=== PATIENT | female | born 1930 | race Caucasian/White ===

== ENCOUNTER 2016-09-21 10:58 | Outpatient (CLI) | payer MEDICARE, OTHER ==
[2015-09-01 13:07] VITALS: BP 121/53
== END 2016-09-21 11:00 ==
LOC: POD 10:58
PROVIDERS: ATTEND Podiatrist Public Medicine
DX: B35.1 Tinea unguium (principal); G60.8 Other hereditary and idiopathic neuropathies; L60.0 Ingrowing nail; M79.674 Pain in right toe(s); M79.675 Pain in left toe(s); G60.9 Hereditary and idiopathic neuropathy, unspecified
CPT/HCPCS: 11721; G0463

== ENCOUNTER 2016-10-11 14:48 | Emergency (ER) | payer MEDICARE, OTHER ==
--- NOTE | 2016-10-11 15:17 | ED Physician Documentation ---
General Adult - HISTORIAN Historian: patient - HPI Chief Complaint: Multiple Trauma Onset: minutes (30) Timing: still present Context: Patient fell going down a ramp in her garage. Fell on cement, no LOC, Further Comments: yes (Patient is on Ticagrelor and ASA for heart. Patient was walking sown a ramp and lost control of her wheeled walker and feel head first onto the floor, no LOC has a mild headache. no numbenss, weakness, or VA changes. Has swelling and ecchymosis to the right forehead, left breast palms bilat and knees bialterally.) - ROS CONST: no problems. denies: fever, chills - PAST HX Past History: CHF, hypertension, other (hyperlipidemia, s/p [place]) Other History: none Surgeries/Procedures: other (PCI with stent,TR, tonsilectomy, appendectomy) Allergies/Adverse Reactions: Allergies Allergy/AdvReac Type Severity Reaction Status Date / Time Penicillins Allergy Verified 10/11/16 15:40 Sulfa (Sulfonamide Allergy Verified 10/11/16 15:40 Antibiotics) Home Medications: Ambulatory Orders Medication Instructions Recorded Aspirin EC [Ecotrin] 81 mg PO D 04/09/14 Ticagrelor [Brilinta] 90 mg PO TID 10/11/16 - SOCIAL HX Smoking History: non-smoker Alcohol Use: none Drug Use: none - FAMILY HX Family History: No - VITAL SIGNS Vital Signs: Vital Signs Temp Pulse Resp BP Pulse Ox 121/53 09/01/15 10:57 - REVIEWED ASSESSMENTS Nursing Assessment Reviewed: Yes Vitals Reviewed: Yes ED Results Lab/Radiology - Orders Orders: ED Orders Category Date Time Status Saline Lock [Remove IV/Saline Lock] 1T Care 10/11/16 15:[address] BRAIN W/O CONTRAST Stat Exams 10/11/16 Ordered CBC/PLATELET/DIFF Routine Lab 10/11/16 Ordered General Adult Physical Exam - PHYSICAL EXAM GENERAL APPEARANCE: mild distress EENT: eye inspection normal, ENT inspection normal, pharynx normal, no signs of dehydration RESPIRATORY: no resp distress, chest non-tender, breath sounds normal. No: wheezes, rales, rhonchi CVS: reg rate & rhythm, heart sounds normal, equal pulses, no murmur ABDOMEN: soft, no organomegaly, normal bowel sounds, no abdominal bruit, no distension, non-tender BACK: normal inspection, no CVA tenderness SKIN: warm/dry, normal color, other (10cm hematoma to the right forehead area, 8 cm hematoma tot he left outer breast. Swelling on hematoma to the hand and knees bilaterally. ) EXTREMITIES: tenderness (mild right knee. ) NEURO: oriented X3, CN's nml as tested, motor nml, sensation nml, mood/affect nml, cognition normal Discharge Clincal Impression: Traumatic hematoma of multiple sites Additional Instructions: cool compress to the areas of hematoma. Your bruising will probably get worse. If you develop any further problems to return to the ED. Home Medications: Ambulatory Orders Aspirin EC [Ecotrin] 81 mg PO D 04/09/14 Ticagrelor [Brilinta] 90 mg PO TID 10/11/16 Condition: Stable Disposition: 01 HOME, SELF-CARE Decision to Admit: NO Date of Decison to Admit: 10/11/16 Decision Time: 16:15
[2016-10-11 15:19] LABS: BASOPHILS % 0.4 (0.0-1.5); EOSINOPHILS % 4.5 % (0.0-6.8); LYMPHOCYTES # 1.6 # k/uL (0.6-4.0); MEAN CORPUSCULAR HEMOGLOBIN 30.6 pg (28.0-34.0); MONOCYTES # 0.3 # k/uL (0.0-0.9); MONOCYTES % 4.5 % (0.0-11.0); NEUTROPHILS # 4.8 # k/uL (1.4-7.7)
[2016-10-11] MEDS ORDERED: ACETAMINOPHEN 325 MG TABLET PO ONE (15:33)
--- NOTE | 2016-10-11 17:29 | Diagnostic Imaging Report ---
[facility] [address] [facility] [address] [address] Report Submission Date: Oct 11, 2016 3:49:36 PM OUTPATIENT INTERVIEWING CLERK Patient Study Name: STEPHIE YBARRA Date: Oct 11, 2016 3:25:24 PM OUTPATIENT INTERVIEWING CLERK Modality Type: CT\SR Gender: F Description: CT BRAIN W/O CONTRAST : 30 Institution: [facility] Physician: BIRDIE KILLIAN Computed tomography of the head without contrast History: Head injury after fall Findings: The transverse brain sections are obtained without contrast revealing a large right frontal scalp hematoma extending into the preseptal periorbital region. Lens replacements have been performed. There is no orbital hemorrhage or globe rupture. Moderate global brain atrophy is present. Chronic small vessel ischemic gliosis is noted in periventricular white matter. Bronson white differentiation is intact. There is no intracranial hemorrhage or skull fracture. Impression: 1. Large right frontal scalp hematoma. 2. Senescent brain changes. Electronically signed on Oct 11, 2016 3:49:36 PM OUTPATIENT INTERVIEWING CLERK by: Ga HWANG
[2016-10-11 17:39] VITALS: BP 110/57
== END 2016-10-11 16:50 | disposition home or self-care (01) ==
LOC: ED 14:48
DX: T14.90 Injury, unspecified (principal); W19.XXXA Unspecified fall, initial encounter; Y93.9 Activity, unspecified; Y99.9 Unspecified external cause status
CPT/HCPCS: 70450; 85025; 99284; S1016

== ENCOUNTER 2017-01-04 10:09 | Outpatient (CLI) | payer MEDICARE, OTHER | END 2017-01-04 10:10 | LOC: POD 10:09 | PROVIDERS: ATTEND Podiatrist Public Medicine | DX: B35.1 Tinea unguium (principal); G60.8 Other hereditary and idiopathic neuropathies; L60.0 Ingrowing nail; M79.674 Pain in right toe(s); M79.675 Pain in left toe(s) | CPT/HCPCS: 11721; G0463 ==

== ENCOUNTER 2017-03-01 10:22 | Inpatient (IN) | payer MEDICARE, OTHER ==
[2017-03-01] MEDS ORDERED: BUDESONIDE 0.5MG/2ML AMPUL.NEB NEB ONE (10:31)
--- NOTE | 2017-03-01 10:34 | ED Physician Documentation ---
General Adult - HISTORIAN Historian: patient, paramedics - HPI Stated Complaint: SOB Chief Complaint: General Adult Additional Information: Cough and congestion x 3 days. Feels like she has pneumonia. [place] like she had a fever yesterday. Diaphoresis last night. Had pneumonia a year ago and several times in last few years. - ROS CONST: fever, sweating CVS/RESP: shortness of breath, cough - PAST HX Past History: CHF, other (pneumonia) Surgeries/Procedures: other (balloon angioplasties and cardiac stents) Allergies/Adverse Reactions: Allergies Allergy/AdvReac Type Severity Reaction Status Date / Time Penicillins Allergy Verified 03/01/17 10:44 Sulfa (Sulfonamide Allergy Verified 03/01/17 10:44 Antibiotics) Home Medications: Ambulatory Orders Medication Instructions Recorded Aspirin [Kadie] 81 mg PO DAILY 03/01/17 Carvedilol [Coreg] 6.25 mg PO BS 03/01/17 Cholecalciferol [Vitamin D-3] 1,000 unit PO BID 03/01/17 Ticagrelor [Brilinta] 90 mg PO BID 03/01/17 - SOCIAL HX Smoking History: non-smoker - FAMILY HX Family History: No - VITAL SIGNS Vital Signs: Vital Signs Temp Pulse Resp BP Pulse Ox 110/57 10/11/16 16:55 - REVIEWED ASSESSMENTS Nursing Assessment Reviewed: Yes Vitals Reviewed: Yes Progress - Progress Progress: Examination: PA and lateral chest. History: Evaluate lung marion. Findings: PA lateral chest demonstrate a normal cardiac silhouette. No focal infiltrate. Mild tortuosity of thoracic aorta with vascular calcifications involving the aortic arch. Prominent the central pulmonary vasculature with increased interstitial markings. Mild blunting of the posterior sulci. Osseous structures are appropriate for age. Impression: Prominent central pulmonary vasculature and mild posterior blunting : May represent increased volume status/congestive failure. Electronically signed on Mar 01, 2017 12:08:18 PM CDT by: Alf Velasquez [id number], spoke with Dr. Steele. Admit. ED Results Lab/Radiology - Orders Orders: ED Orders Category Date Time Status Continuous EKG monitoring Q1H Care 03/01/17 10:29 Ordered Continuous Pulse Oximetry Q1H Care 03/01/17 10:[address] IV Lock 1T Care 03/01/17 10:31 Ordered CHEST 2 VIEW [CHEST P.A.&LAT 2 VIEWS] [RAD] Stat Exams 03/01/17 Ordered CBC/PLATELET/DIFF Routine Lab 03/01/17 Ordered CMP Routine Lab 03/01/17 Ordered NT-proBNP Stat Lab 03/01/17 Ordered URINALYSIS Routine Lab 03/01/17 Ordered Budesonide [Pulmicort] Med 03/01/17 10:31 Once 0.5 mg NEB BID ONE Oxygen Daily Oxygen 03/01/17 10:30 Ordered EKG WITH COMPARISON Stat Ther 03/01/17 Ordered General Adult Physical Exam - PHYSICAL EXAM GENERAL APPEARANCE: moderate distress (anxious, Duoneb in progress per EMS) EENT: eye inspection normal, ENT inspection normal, pharynx normal, JENNIFER, dry mucous membranes NECK: normal inspection, supple RESPIRATORY: breath sounds normal (but decreased in lower lobes), wheezes (end exp) CVS: reg rate & rhythm, heart sounds normal, equal pulses, no murmur ABDOMEN: soft, normal bowel sounds, no distension, non-tender RECTAL: deferred BACK: normal inspection, no CVA tenderness, other (no vertebra ltenderness) SKIN: warm/dry, normal color EXTREMITIES: non-tender, no evidence of injury, no edema NEURO: CN's nml as tested, motor nml, sensation nml, cognition normal Discharge Clincal Impression: Pneumonia Qualifiers: Pneumonia type: due to unspecified organism Laterality: bilateral Lung location : lower lobe of lung Qualified Code(s): J18.9 - Pneumonia, unspecified organism Referrals: Alexander Steele MD [Primary Care Provider] - 2 Days Home Medications: Ambulatory Orders Aspirin [Kadie] 81 mg PO DAILY 03/01/17 Carvedilol [Coreg] 6.25 mg PO BS 03/01/17 Cholecalciferol [Vitamin D-3] 1,000 unit PO BID 03/01/17 Ticagrelor [Brilinta] 90 mg PO BID 03/01/17 Condition: Fair Disposition: 01 HOME, SELF-CARE Decision to Admit: NO Decision Time: 12:09
[2017-03-01 10:48] LABS: BASOPHILS % 0.3 (0.0-1.5); EOSINOPHILS % 2.1 % (0.0-6.8); MEAN CORPUSCULAR HEMOGLOBIN 30.9 pg (28.0-34.0); MEAN CORPUSCULAR VOLUME 91.9 fl (80.0-100.0); MONOCYTES % 3.4 % (0.0-11.0); NEUTROPHILS # 13.2 # k/uL (1.4-7.7)
[2017-03-01] MEDS ORDERED: SODIUM CHLORIDE 3 ML VIAL.NEB IH ONE (10:51)
[2017-03-01 11:02] LABS: eGFR (African) > 60; eGFR (Non-African) > 60
[2017-03-01] MEDS ORDERED: 0.9 % SODIUM CHLORIDE 1,000 ML IV ONE (11:28)
[2017-03-01] MEDS ORDERED: 0.9 % SODIUM CHLORIDE 1,000 ML IV SCH ×2 (11:30→16:12)
[2017-03-01] MEDS ORDERED: cefTRIAXone SODIUM ADVANTAGE 1 GM in NORMAL SALINE ADD-VANTAGE 50 ML IV ONE (12:07)
[2017-03-01] MEDS ORDERED: AZITHROMYCIN 250 MG TABLET PO ONE (12:07)
[2017-03-01] MEDS ORDERED: cefTRIAXone SODIUM 1 GM VIAL ONE (12:14)
[2017-03-01] MEDS ORDERED: 0.9 % SODIUM CHLORIDE 50 ML IV ONE (12:14)
--- NOTE | 2017-03-01 14:43 | Diagnostic Imaging Report ---
AMINA LEPE [facility] [address] [facility] [address] Report Submission Date: Mar 01, 2017 12:08:18 PM CDT Patient Study Name: STEPHIE YBARRA Date: Mar 01, 2017 11:16:01 AM CDT Modality Type: CR Gender: F Description: CHEST : 30 Institution: [facility] Physician: AMINA LEPE Examination: PA and lateral chest. History: Evaluate lung marion. Findings: PA lateral chest demonstrate a normal cardiac silhouette. No focal infiltrate. Mild tortuosity of thoracic aorta with vascular calcifications involving the aortic arch. Prominent the central pulmonary vasculature with increased interstitial markings. Mild blunting of the posterior sulci. Osseous structures are appropriate for age. Impression: Prominent central pulmonary vasculature and mild posterior blunting : May represent increased volume status/congestive failure. Electronically signed on Mar 01, 2017 12:08:18 PM CDT by: Alf HWANG
[2017-03-01 15:38] VITALS: BMI 27.1
[2017-03-01] MEDS ORDERED: FUROSEMIDE 40 MG/4 ML VIAL IVP SCH (17:00)
[2017-03-01] MEDS: IPRATROPIUM/ALBUTEROL SULFATE 3 ML AMPUL.NEB NEB SCH ×2 (17:22→21:07)
[2017-03-01] MEDS ORDERED: FUROSEMIDE 40 MG/4 ML VIAL IVP ONE (17:26)
[2017-03-01] MEDS ORDERED: SALINE FLUSH 10 ML DISP.SYRIN IVF ONE (17:27)
--- NOTE | 2017-03-01 17:27 | History and Physical Report ---
History of Present Illnes - History of Present Illness Reason for Visit: shortness of breath History of Present Illness: 86-year-old white female you states that over the last three days she is been having some increasing shortness of breath dyspnea with exertion. Patient has had a history of pneumonia in the past. Patient has developed the cough is been productive of some cleared to white phlegm. Patient denies any hemoptysis. Patient has had a low-grade fever. Patient denies any orthotic symptoms. Patient denies any chest pain chest pressure. Patient was subsequently seen in the ED. Patient was felt to have a developing pneumonia and was subsequently admitted to the hospital for further care and evaluation. Patient did have an elevated BNP. Reviewed radiology evaluation of the chest x-ray showed some questionable increasing pulmonary edema. - Past Medical History Cardiac: CAD, CHF, HTN, [place], Hyperlipidemia Pulmonary: Pneumonia - Past Surgical History Past Surgical History: Appendectomy, Total Knee Replacement (2006, 2011), Tonsillectomy, Other (carotid endarterectomy 1995, cervical discectomy 2004, PCI w stenting 2006, PCI w/o stenting 1995, ,) - Past Family History Mother Family History: Father Family History: - Past Social History Smoke: No, Quit (1954) Alcohol: None Drugs: None Lives: With Family () - Health Maintenance Health Maintenance: Influenza Vaccine, Pneumococcal Vaccine Pneumonia Vaccine: Yes Resuscitation Status: Resusciation Status Resuscitation Status Full Code - Unable to Obtain History Unable to Obtain: No Review of Systems - Review of Systems Constitutional: Fever, Chills, Weakness Eyes: negative: pain ENT: Nose Congestion (mild development of Silver). negative: Ear Pain, Ear Discharge, Nose Pain, Nose Discharge Respiratory: Cough, Shortness of Breath, SOB with Excertion, Pleuritic Pain, Sputum, Wheezing. negative: Dry, Hemoptysis (just get to my refrigerator) Cardiovascular: negative: Chest Pain, Palpitations, Paroxysmal Noc. Dyspnea, Edema Gastrointestinal: Constipation. negative: Nausea, Vomiting, Abdominal Pain, Diarrhea, Melena, Hematochezia Genitourinary: Incontinence (stress should more was a not sure where that came from but will shoot acute). negative: Dysuria, Frequency, Hematuria, Retention (having some problems with initiating stream) Musculoskeletal: negative: Neck Pain, Shoulder Pain, Arm Pain, Back Pain Skin: negative: Rash Neurological: Weakness. negative: Numbness, Incoordination, Change in Speech, Confusion, Seizures - Medications/Allergies Allergies/Adverse Reactions: Allergies Allergy/AdvReac Type Severity Reaction Status Date / Time Penicillins Allergy Verified 03/05/17 16:57 Sulfa (Sulfonamide Allergy Verified 03/05/17 16:57 Antibiotics) Home Medications: Home Medications Aspirin [Kadie] 81 mg PO DAILY 03/01/17 Carvedilol [Coreg] 6.25 mg PO BS 03/01/17 Cholecalciferol [Vitamin D-3] 1,000 unit PO BID 03/01/17 Ticagrelor [Brilinta] 90 mg PO BID 03/01/17 Current Inpatient Medications: Current Inpatient Medications Albuterol/Ipratropium (Duoneb) 3 ml NEB Q4 [facility] Last Admin: 03/01/17 17:22 Dose: 3 ml Aspirin (Aspirin) 81 mg PO DAILY [facility] Carvedilol (Coreg) 6.25 mg PO BS [facility] Cholecalciferol (Vitamin D-3) 1,000 unit PO BID [facility] Duloxetine HCl (Cymbalta) 60 mg PO HS [facility] Enoxaparin Sodium (Lovenox) 30 mg SQ QD [facility] Stop: 03/14/17 17:01 Furosemide (Lasix) 40 mg PO DAILY [facility] Furosemide (Lasix) 40 mg IVP QD [facility] Furosemide (Lasix) 40 mg IVP NOW ONE Stop: 03/01/17 17:27 Azithromycin 500 mg/ Sodium (Chloride) 250 mls @ 125 mls/hr IV Q24H [facility] Stop: 03/12/17 12:59 Ceftriaxone Sodium 1 gm/ (Sodium Chloride) 50 mls @ 100 mls/hr IV QD [facility] Lisinopril (Prinivil) 5 mg PO DAILY [facility] Miscellaneous (Ticagrelor [Brilinta]) 90 mg PO BID [facility] Miscellaneous (Chem Sticks) 1 each CHEMQID [facility] Last Admin: 03/01/17 16:06 Dose: 1 each Miscellaneous (Patient Own Med) 1 each PO BID [facility] Pravastatin Sodium (Pravachol) 40 mg PO HS [facility] Exam - Exam Vital Signs: Vital Signs (72 hours) 03/01/17 03/01/17 03/01/17 12:57 13:00 14:00 Temperature 98.5 F Pulse Rate 78 77 Pulse Rate [ 84 Pulse ox] Respiratory 22 Rate Blood Pressure 137/68 [Left Arm] O2 Sat by Pulse 94 94 94 Oximetry 03/01/17 03/01/17 03/01/17 15:00 16:00 16:39 Temperature 98.6 F Pulse Rate 80 91 H Pulse Rate [ 88 Pulse ox] Respiratory 24 Rate Blood Pressure 144/78 [Left Arm] O2 Sat by Pulse 95 95 95 Oximetry 03/01/17 17:00 Temperature Pulse Rate 91 H Pulse Rate [ Pulse ox] Respiratory Rate Blood Pressure [Left Arm] O2 Sat by Pulse 94 Oximetry General: Alert, Oriented to Person, Oriented to Place, Oriented to Time, Cooperative HEENT: Atraumatic Neck: No: Stridor, Rigidity, Lymphadenopathy Carotids: WNL Thyroid: WNL Lungs: Normal air movement, Speaks full Sentences, Respiratory Distress (mild), Rales (bilateral base), Rhonchi (bilateral bas). No: Prolonged Expiration Cardiovascular: Regular rate, Normal S1, Normal S2, No murmurs. No: Gallops, Rubs Abdomen: Normal bowel sounds, Soft, No tenderness, No hepatospenomegaly, No masses. No: Distended Integumentary: Normal, Umbarger, Warm Extremities: No clubbing, No cyanosis Neurological: Normal gait, Normal speech, Strength Equal Bilat, Normal tone, Sensation intact, Cranial nerves 3-12 NL Psych/Mental Status: Mental status NL, Mood NL, Appropriate Affect, Intact Judgment Assessment/Plan - Assessment/Plan (1) Pneumonia Status: Acute Qualifiers: Pneumonia type: due to unspecified organism Laterality: bilateral Lung location: unspecified part of lung Qualified Code(s): J18.9 - Pneumonia, unspecified organism Plan: patient will be started on Azithromycin and levequin. Will start HFN treatments. Blood cultures drawn, supplemental oxygen, (2) CAD (coronary artery disease) Status: Chronic Qualifiers: Coronary Disease-Associated Artery/Lesion type: [place] artery [place] vs. transplanted heart: [place] heart Associated angina: without angina Qualified Code(s): I25.10 - Atherosclerotic heart disease of [place] coronary artery without angina pectoris Assessment: continue home meds (3) CHF (congestive heart failure) Status: Chronic Qualifiers: Congestive heart failure chronicity: chronic (4) Essential hypertension Status: Chronic Assessment: continue home meds VTE Assessment - RISK FACTOR SCORE VTE RISK FACTOR SCORES: AGE OVER 60 YEARS, ACUTE INFECTION OTHER THEN SEPSIS - RISK VTE MODERATE RISK: SCORE OF 2 (RISK PROXIMAL DVT 2-4%) PROPHYAXIS NEEDED
[2017-03-01] MEDS: ENOXAPARIN SODIUM 30 MG/0.3 ML DISP.SYRIN SQ SCH (17:43)
[2017-03-01] MEDS: CARVEDILOL 6.25 MG TABLET PO SCH (17:44)
[2017-03-01] MEDS ORDERED: POLYETHYLENE GLYCOL 3350 17 GM POWD.PACK PO ONE (17:48)
[2017-03-01] MEDS ORDERED: ACETAMINOPHEN 325 MG TABLET ONE (18:13)
[2017-03-01] MEDS: ACETAMINOPHEN 500 MG TABLET PO PRN (18:25)
[2017-03-01 19:13] LABS: APPEARANCE,URINE Clear (CLEAR); COLOR,URINE Yellow (YELLOW); OCCULT BLOOD,URINE 2+ (NEGATIVE); PH URINE 5.5 (5.0 - 8.0); UROBILINOGEN URINE 0.2 Eu (0.2-1.0)
[2017-03-01] MEDS ORDERED: ASPIRIN 81 MG CHEW TAB PO SCH (21:00)
[2017-03-01] MEDS ORDERED: TICAGRELOR 90 MG PO SCH (21:00)
[2017-03-01] MEDS ORDERED: [UNRECOGNIZED DRUG - MIXTURE] PO SCH (21:00)
[2017-03-01] MEDS: PRAVASTATIN SODIUM 20 MG TABLET PO SCH (21:08)
[2017-03-01] MEDS: DULoxetine HCL 30 MG CAPSULE.DR PO SCH (21:08)
[2017-03-01] MEDS: CHOLECALCIFEROL 1,000 UNIT TABLET PO SCH (21:08)
[2017-03-01] MEDS: TICAGRELOR 90 MG PO SCH (21:14)
[2017-03-02] MEDS: IPRATROPIUM/ALBUTEROL SULFATE 3 ML AMPUL.NEB NEB SCH ×6 (01:30→21:13)
[2017-03-02 07:01] LABS: BASOPHILS % 0.4 (0.0-1.5); EOSINOPHILS % 1.9 % (0.0-6.8); MEAN CORPUSCULAR HEMOGLOBIN 31.1 pg (28.0-34.0); MEAN CORPUSCULAR VOLUME 93.6 fl (80.0-100.0); MONOCYTES % 4.3 % (0.0-11.0); NEUTROPHILS # 11.5 # k/uL (1.4-7.7)
[2017-03-02 07:15] LABS: eGFR (African) > 60; eGFR (Non-African) 41
[2017-03-02] MEDS: CHOLECALCIFEROL 1,000 UNIT TABLET PO SCH ×2 (08:39→20:53)
[2017-03-02] MEDS: TICAGRELOR 90 MG PO SCH ×2 (08:39→20:51)
[2017-03-02] MEDS: CARVEDILOL 6.25 MG TABLET PO SCH ×2 (08:39→17:27)
[2017-03-02] MEDS: LISINOPRIL 5 MG TABLET PO SCH (08:40)
[2017-03-02] MEDS ORDERED: Non-Formulary 1 EACH (Duloxetine Hcl [Duloxetine Hcl] 60 MG) PO SCH (09:00)
[2017-03-02] MEDS ORDERED: ASPIRIN 81 MG CHEW TAB PO SCH (09:00)
[2017-03-02] MEDS ORDERED: PRAVASTATIN SODIUM 40 MG PO SCH (09:00)
[2017-03-02] MEDS: POLYETHYLENE GLYCOL 3350 17 GM POWD.PACK PO SCH (10:34)
[2017-03-02] MEDS ORDERED: SALINE FLUSH 10 ML DISP.SYRIN IVF ONE ×2 (13:16→17:41)
[2017-03-02] MEDS: AZITHROMYCIN 500 MG in 0.9 % SODIUM CHLORIDE 250 ML IV SCH (13:26)
--- NOTE | 2017-03-02 15:48 | Diagnostic Imaging Report ---
[place]/MED SURG [facility] [address] [address] [facility] [address] [address] Report Submission Date: Mar 02, 2017 3:47:35 PM CDT Patient Study Name: STEPHIE YBARRA Date: Mar 02, 2017 3:10:49 PM CDT Modality Type: US Gender: F Description: US RETROPERITONEAL LIMIT : 30 Institution: [facility] Physician: ROBINSON MARIA/MED SURG Examination: Ultrasound bladder History: Retention Comparison exams: None provided Findings: Pre void volume 367.21 ml. Post void volume 291.12 Bladder wall without evidence for mass or suspicious lesion. Impression: Significant post void residual. Correlate with any underlying medical condition/history to determine etiology Electronically signed on Mar 02, 2017 3:47:35 PM CDT by: Alf HWANG
[2017-03-02] MEDS: cefTRIAXone SODIUM 1 GM in 0.9 % SODIUM CHLORIDE 50 ML IV SCH (17:25)
[2017-03-02] MEDS: ENOXAPARIN SODIUM 30 MG/0.3 ML DISP.SYRIN SQ SCH (17:27)
[2017-03-02] MEDS: DULoxetine HCL 30 MG CAPSULE.DR PO SCH (20:50)
[2017-03-02] MEDS: ASPIRIN EC 81 MG TABLET.DR PO SCH (20:51)
[2017-03-02] MEDS: PRAVASTATIN SODIUM 20 MG TABLET PO SCH (20:52)
[2017-03-02] MEDS: ACETAMINOPHEN 500 MG TABLET PO PRN (23:11)
[2017-03-03] MEDS: IPRATROPIUM/ALBUTEROL SULFATE 3 ML AMPUL.NEB NEB SCH ×6 (01:00→20:37)
[2017-03-03] MEDS: CARVEDILOL 6.25 MG TABLET PO SCH ×2 (08:42→17:28)
[2017-03-03] MEDS: FUROSEMIDE 40 MG TABLET PO SCH (08:43)
[2017-03-03] MEDS: TICAGRELOR 90 MG PO SCH ×2 (08:43→20:09)
[2017-03-03] MEDS: CHOLECALCIFEROL 1,000 UNIT TABLET PO SCH ×2 (08:44→20:10)
[2017-03-03] MEDS: LISINOPRIL 5 MG TABLET PO SCH (08:44)
[2017-03-03 10:26] LABS: BASOPHILS % 0.5 (0.0-1.5); EOSINOPHILS % 3.5 % (0.0-6.8); MEAN CORPUSCULAR HEMOGLOBIN 31.3 pg (28.0-34.0); MEAN CORPUSCULAR VOLUME 91.9 fl (80.0-100.0); MONOCYTES % 4.4 % (0.0-11.0); NEUTROPHILS # 8.8 # k/uL (1.4-7.7)
[2017-03-03 10:37] LABS: eGFR (African) > 60; eGFR (Non-African) > 60
[2017-03-03] MEDS: POLYETHYLENE GLYCOL 3350 17 GM POWD.PACK PO SCH (11:37)
--- NOTE | 2017-03-03 11:51 | Inpatient Progress Note ---
Subjective - Required Recertification Statement I anticipate X number of days because-include discharge plan: 1 - Review of Systems Events since last encounter: patient states that she seem to be doing OK with breathing. Is off oxygen at this time. Has Been having some difficulties with urinating over the last 24 hours. Patient has post void US done which showed 290cc. General: Denies: Chills Cardiovascular: Denies: Chest Pain Neurological: Denies: Weakness, Numbness Objective - Exam Vitals and I&O: Vital Signs Temp 98.8 F 03/03/17 08:37 Pulse 81 03/03/17 10:00 Resp 18 03/03/17 08:37 BP 128/73 03/03/17 08:37 Pulse Ox 90 L 03/03/17 08:37 Intake & Output 03/02/17 03/02/17 03/03/17 11:59 23:59 11:59 Intake Total 420 1130 840 Output Total 963 213 2646 Balance -380 1010 -760 Weight 88.45 kg Intake: IV 0 300 0 Right Forearm 0 300 0 Oral 420 830 840 Output: Urine 380 455 9210 Other: Voiding Method Toilet Toilet Toilet # Voids 4 # Bowel Movements 0 General: Alert, Oriented to Person, Oriented to Place, Oriented to Time, Cooperative Neck: Supple Lungs: Clear to auscultation, Normal air movement, Speaks full Sentences. No: Wheezes, Rales Cardiovascular: Regular rate, Normal S1, Normal S2, No murmurs Abdomen: Normal bowel sounds, Soft, No tenderness Skin: Normal, [place], Warm, Dry Psych/Mental Status: Mental status NL - Results Results: Laboratory Results WBC 11.00 K/ul (4.00-12.00) 03/03/17 10:10 RBC 3.58 M/ul (3.90-5.20) L 03/03/17 10:10 Hgb 11.2 g/dL (12.0-16.0) L 03/03/17 10:10 Hct 32.9 % (34.5-46.5) L 03/03/17 10:10 MCV 91.9 fl (80.0-100.0) 03/03/17 10:10 MCH 31.3 pg (28.0-34.0) 03/03/17 10:10 MCHC 34.1 g/dL (30.0-36.0) 03/03/17 10:10 RDW 13.8 % (11.3-14.3) 03/03/17 10:10 Plt Count 186 K/mm3 (130-400) 03/03/17 10:10 Neut % (Auto) 79.9 % (39.0-79.0) H 03/03/17 10:10 Lymph % (Auto) 10.2 % (16.0-50.0) L 03/03/17 10:10 Peach % (Auto) 4.4 % (0.0-11.0) 03/03/17 10:10 Eos % (Auto) 3.5 % (0.0-6.8) 03/03/17 10:10 Baso % (Auto) 0.5 (0.0-1.5) 03/03/17 10:10 Neut # (Auto) 8.8 # k/uL (1.4-7.7) H 03/03/17 10:10 Lymph # (Auto) 1.1 # k/uL (0.6-4.0) 03/03/17 10:10 Peach # (Auto) 0.5 # k/uL (0.0-0.9) 03/03/17 10:10 Eos # (Auto) 0.4 # k/uL (0.0-0.6) 03/03/17 10:10 Baso # (Auto) 0.1 # k/uL (0.0-0.5) 03/03/17 10:10 Reactive Lymphs % 1.4 % (0.0-5.0) 03/03/17 10:10 Reactive Lymphs # 0.2 # k/uL (0.0-0.8) 03/03/17 10:10 Sodium 130 mmol/L (136-145) L 03/03/17 10:10 Potassium 3.7 mmol/L (3.5-5.0) 03/03/17 10:10 Chloride 95 mmol/L (98-110) L 03/03/17 10:10 Carbon Dioxide 26 mmol/L (20-32) 03/03/17 10:10 BUN 21 mg/dL (10-26) 03/03/17 10:10 Creatinine 1.1 mg/dL (0.4-1.5) 03/03/17 10:10 Estimated Creat Clear 60 03/03/17 10:10 Est GFR ( Amer) > 60 (60-) 03/03/17 10:10 Est GFR (Non-Af Amer) > 60 (60-) 03/03/17 10:10 Glucose 222 mg/dL (70-99) H 03/03/17 10:10 Estimat Average Glucose 166 mg/dL 03/02/17 06:45 Hemoglobin A1c 7.4 % (4.0-5.6) H 03/02/17 06:45 Calcium 9.3 mg/dL (8.5-10.5) 03/03/17 10:10 Total Bilirubin 0.7 mg/dL (0.2-1.2) 03/02/17 06:45 AST 17 U/L (0-41) 03/02/17 06:45 ALT 13 U/L (0-45) 03/02/17 06:45 Alkaline Phosphatase 131 U/L (46-116) H 03/02/17 06:45 NT-Pro-B Natriuret Pep 1031.5 pg/mL (15.0-450.0) H 03/03/17 10:10 Total Protein 7.0 g/dL (6.0-8.5) 03/02/17 06:45 Albumin 3.8 g/dL (3.0-5.5) 03/02/17 06:45 Urine Color Yellow (YELLOW) 03/01/17 19:00 Urine Appearance Clear (CLEAR) 03/01/17 19:00 Urine pH 5.5 (5.0 - 8.0) 03/01/17 19:00 Ur Specific [place] 1.010 (1.010-1.030) 03/01/17 19:00 Urine Protein Trace mg/dL (NEGATIVE) 03/01/17 19:00 Urine Ketones Negative mg/dL (NEGATIVE) 03/01/17 19:00 Urine Occult Blood 2+ (NEGATIVE) H 03/01/17 19:00 Urine Nitrite Positive (NEGATIVE) 03/01/17 19:00 Urine Bilirubin Negative (NEGATIVE) 03/01/17 19:00 Urine Urobilinogen 0.2 Eu (0.2-1.0) 03/01/17 19:00 Ur Leukocyte Esterase 1+ (NEGATIVE) H 03/01/17 19:00 Urine Glucose Negative mg/dL (NEGATIVE) 03/01/17 19:00 Group A Strep Screen Negative (NEGATIVE) 03/01/17 11:20 Assessment/Plan - Assessment/Plan (1) Pneumonia Status: Acute Current Visit: Yes Qualifiers: Pneumonia type: due to unspecified organism Laterality: bilateral Lung location: lower lobe of lung Qualified Code(s): J18.9 - Pneumonia, unspecified organism Assessment: Improved, WBC is now normal, will get repeat CXR. (2) CAD (coronary artery disease) Status: Chronic Current Visit: Yes Qualifiers: Coronary Disease-Associated Artery/Lesion type: [place] artery [place] vs. transplanted heart: [place] heart Associated angina: without angina Qualified Code(s): I25.10 - Atherosclerotic heart disease of [place] coronary artery without angina pectoris Assessment: stable (3) CHF (congestive heart failure) Status: Chronic Current Visit: Yes Qualifiers: Congestive heart failure chronicity: chronic (4) Essential hypertension Status: Chronic Current Visit: Yes Assessment: stable (5) Voiding difficulty Status: Acute Current Visit: Yes Assessment: Will consider cath. Patient encouraged to continue to drink a lot.
--- NOTE | 2017-03-03 11:55 | Inpatient Progress Note ---
Subjective - Required Recertification Statement I anticipate X number of days because-include discharge plan: 2 day - Review of Systems Events since last encounter: Patient seems to be doing some better today. States that she is breathing a lot better then yesterday. Still has a cough, green at times. No fever or chill noted. Still feels weak. Pulmonary: Dyspnea, Cough. Denies: Pleuritic Chest Pain Cardiovascular: Denies: Chest Pain Gastrointestinal: Denies: Nausea, Vomiting Objective - Exam Vitals and I&O: Vital Signs Temp 98.8 F 03/03/17 08:37 Pulse 81 03/03/17 10:00 Resp 18 03/03/17 08:37 BP 128/73 03/03/17 08:37 Pulse Ox 90 L 03/03/17 08:37 Intake & Output 03/02/17 03/02/17 03/03/17 11:59 23:59 11:59 Intake Total 420 1130 840 Output Total 755 657 8341 Balance -380 1010 -760 Weight 88.45 kg Intake: IV 0 300 0 Right Forearm 0 300 0 Oral 420 830 840 Output: Urine 742 141 2470 Other: Voiding Method Toilet Toilet Toilet # Voids 4 # Bowel Movements 0 General: Alert, Oriented to Person, Oriented to Place, Oriented to Time, Cooperative Lungs: Normal air movement, Speaks full Sentences, Rhonchi (few right posterior) Cardiovascular: Regular rate, Normal S1, Normal S2, No murmurs Extremities: No clubbing, No cyanosis, No edema Skin: Normal, [place], Warm, Dry Neurological: Normal speech - Results Results: Laboratory Results WBC 11.00 K/ul (4.00-12.00) 03/03/17 10:10 RBC 3.58 M/ul (3.90-5.20) L 03/03/17 10:10 Hgb 11.2 g/dL (12.0-16.0) L 03/03/17 10:10 Hct 32.9 % (34.5-46.5) L 03/03/17 10:10 MCV 91.9 fl (80.0-100.0) 03/03/17 10:10 MCH 31.3 pg (28.0-34.0) 03/03/17 10:10 MCHC 34.1 g/dL (30.0-36.0) 03/03/17 10:10 RDW 13.8 % (11.3-14.3) 03/03/17 10:10 Plt Count 186 K/mm3 (130-400) 03/03/17 10:10 Neut % (Auto) 79.9 % (39.0-79.0) H 03/03/17 10:10 Lymph % (Auto) 10.2 % (16.0-50.0) L 03/03/17 10:10 [place] % (Auto) 4.4 % (0.0-11.0) 03/03/17 10:10 Eos % (Auto) 3.5 % (0.0-6.8) 03/03/17 10:10 Baso % (Auto) 0.5 (0.0-1.5) 03/03/17 10:10 Neut # (Auto) 8.8 # k/uL (1.4-7.7) H 03/03/17 10:10 Lymph # (Auto) 1.1 # k/uL (0.6-4.0) 03/03/17 10:10 [place] # (Auto) 0.5 # k/uL (0.0-0.9) 03/03/17 10:10 Eos # (Auto) 0.4 # k/uL (0.0-0.6) 03/03/17 10:10 Baso # (Auto) 0.1 # k/uL (0.0-0.5) 03/03/17 10:10 Reactive Lymphs % 1.4 % (0.0-5.0) 03/03/17 10:10 Reactive Lymphs # 0.2 # k/uL (0.0-0.8) 03/03/17 10:10 Sodium 130 mmol/L (136-145) L 03/03/17 10:10 Potassium 3.7 mmol/L (3.5-5.0) 03/03/17 10:10 Chloride 95 mmol/L (98-110) L 03/03/17 10:10 Carbon Dioxide 26 mmol/L (20-32) 03/03/17 10:10 BUN 21 mg/dL (10-26) 03/03/17 10:10 Creatinine 1.1 mg/dL (0.4-1.5) 03/03/17 10:10 Estimated Creat Clear 60 03/03/17 10:10 Est GFR ( Amer) > 60 (60-) 03/03/17 10:10 Est GFR (Non-Af Amer) > 60 (60-) 03/03/17 10:10 Glucose 222 mg/dL (70-99) H 03/03/17 10:10 Estimat Average Glucose 166 mg/dL 03/02/17 06:45 Hemoglobin A1c 7.4 % (4.0-5.6) H 03/02/17 06:45 Calcium 9.3 mg/dL (8.5-10.5) 03/03/17 10:10 Total Bilirubin 0.7 mg/dL (0.2-1.2) 03/02/17 06:45 AST 17 U/L (0-41) 03/02/17 06:45 ALT 13 U/L (0-45) 03/02/17 06:45 Alkaline Phosphatase 131 U/L (46-116) H 03/02/17 06:45 NT-Pro-B Natriuret Pep 1031.5 pg/mL (15.0-450.0) H 03/03/17 10:10 Total Protein 7.0 g/dL (6.0-8.5) 03/02/17 06:45 Albumin 3.8 g/dL (3.0-5.5) 03/02/17 06:45 Urine Color Yellow (YELLOW) 03/01/17 19:00 Urine Appearance Clear (CLEAR) 03/01/17 19:00 Urine pH 5.5 (5.0 - 8.0) 03/01/17 19:00 Ur Specific [place] 1.010 (1.010-1.030) 03/01/17 19:00 Urine Protein Trace mg/dL (NEGATIVE) 03/01/17 19:00 Urine Ketones Negative mg/dL (NEGATIVE) 03/01/17 19:00 Urine Occult Blood 2+ (NEGATIVE) H 03/01/17 19:00 Urine Nitrite Positive (NEGATIVE) 03/01/17 19:00 Urine Bilirubin Negative (NEGATIVE) 03/01/17 19:00 Urine Urobilinogen 0.2 Eu (0.2-1.0) 03/01/17 19:00 Ur Leukocyte Esterase 1+ (NEGATIVE) H 03/01/17 19:00 Urine Glucose Negative mg/dL (NEGATIVE) 03/01/17 19:00 Group A Strep Screen Negative (NEGATIVE) 03/01/17 11:20 Assessment/Plan - Assessment/Plan (1) Pneumonia Status: Acute Qualifiers: Pneumonia type: due to unspecified organism Laterality: bilateral Lung location: unspecified part of lung Qualified Code(s): J18.9 - Pneumonia, unspecified organism (2) CAD (coronary artery disease) Status: Chronic Qualifiers: Coronary Disease-Associated Artery/Lesion type: [place] artery [place] vs. transplanted heart: [place] heart Associated angina: without angina Qualified Code(s): I25.10 - Atherosclerotic heart disease of [place] coronary artery without angina pectoris Assessment: stable on home meds (3) CHF (congestive heart failure) Status: Chronic Qualifiers: Congestive heart failure chronicity: chronic Comment: stable on home meds (4) Essential hypertension Status: Chronic (5) Voiding difficulty Status: Acute
[2017-03-03] MEDS: AZITHROMYCIN 500 MG in 0.9 % SODIUM CHLORIDE 250 ML IV SCH (13:58)
[2017-03-03] MEDS ORDERED: SALINE FLUSH 10 ML DISP.SYRIN IVF ONE (14:06)
--- NOTE | 2017-03-03 15:14 | Diagnostic Imaging Report ---
[facility] [address] [facility].[address] [address] Report Submission Date: Mar 03, 2017 12:14:50 PM CDT Patient Study Name: STEPHIE YBARRA Date: Mar 03, 2017 11:03:02 AM CDT Modality Type: CR Gender: F Description: CHEST : 30 Institution: [facility] Physician: [facility] Examination: PA and lateral chest. History: Evaluate lung marion. Comparison exam: 01 March 2017 Findings: PA lateral chest demonstrate a normal cardiac silhouette. Mild tortuosity of the thoracic aorta with vascular calcifications involving the aortic arch. Parenchymal interstitial pattern has remained stable. No new consolidative process. Stable presumed granuloma right midlung region. Lateral view again demonstrates some blunting of the posterior sulci. Osseous structures are appropriate for age. Impression: Stable interstitial changes. Findings may represent continued mild congestive failure pattern versus patient's baseline pulmonary status. Correlate with patient's symptoms. Electronically signed on Mar 03, 2017 12:14:50 PM CDT by: Alf HWANG
[2017-03-03] MEDS: cefTRIAXone SODIUM 1 GM in 0.9 % SODIUM CHLORIDE 50 ML IV SCH (16:19)
[2017-03-03] MEDS: ENOXAPARIN SODIUM 30 MG/0.3 ML DISP.SYRIN SQ SCH (17:28)
[2017-03-03] MEDS: DULoxetine HCL 30 MG CAPSULE.DR PO SCH (20:07)
[2017-03-03] MEDS: PRAVASTATIN SODIUM 20 MG TABLET PO SCH (20:09)
[2017-03-03] MEDS: ASPIRIN EC 81 MG TABLET.DR PO SCH (20:10)
[2017-03-03] MEDS: ACETAMINOPHEN 500 MG TABLET PO PRN ×2 (20:12→23:27)
[2017-03-04] MEDS: IPRATROPIUM/ALBUTEROL SULFATE 3 ML AMPUL.NEB NEB SCH ×3 (02:29→08:20)
[2017-03-04] MEDS: CARVEDILOL 6.25 MG TABLET PO SCH (08:19)
[2017-03-04] MEDS: FUROSEMIDE 40 MG TABLET PO SCH (08:20)
[2017-03-04] MEDS: LISINOPRIL 5 MG TABLET PO SCH (08:20)
[2017-03-04] MEDS: CHOLECALCIFEROL 1,000 UNIT TABLET PO SCH (08:20)
[2017-03-04] MEDS: TICAGRELOR 90 MG PO SCH (08:20)
[2017-03-04 08:37] VITALS: BP 126/59
--- NOTE | 2017-04-04 15:51 | Discharge Summary ---
Discharge Summary - Discharge Sumary History of Present Illness: 86-year-old white female you states that over the last three days she is been having some increasing shortness of breath dyspnea with exertion. Patient has had a history of pneumonia in the past. Patient has developed the cough is been productive of some cleared to white phlegm. Patient denies any hemoptysis. Patient has had a low-grade fever. Patient denies any orthotic symptoms. Patient denies any chest pain chest pressure. Patient was subsequently seen in the ED. Patient was felt to have a developing pneumonia and was subsequently admitted to the hospital for further care and evaluation. Patient did have an elevated BNP. Reviewed radiology evaluation of the chest x-ray showed some questionable increasing pulmonary edema. Condition at Discharge: Stable Home Medications: Ambulatory Orders Medication Instructions Recorded Aspirin [Kadie] 81 mg PO DAILY 03/01/17 Carvedilol [Coreg] 6.25 mg PO BS 03/01/17 Cholecalciferol [Vitamin D-3] 1,000 unit PO BID 03/01/17 Ticagrelor [Brilinta] 90 mg PO BID 03/01/17 Allopurinol [Zyloprim] 100 mg PO DAILY #30 tab 03/22/17 HYDROcodone /APAP 5/325 [[place] 1 each PO Q4 PRN #20 tab 03/22/17 5/325] Consultations this Visit: None Procedures this Visit: None Allergies/Adverse Reactions: Allergies Allergy/AdvReac Type Severity Reaction Status Date / Time Penicillins Allergy Verified 03/05/17 16:57 Sulfa (Sulfonamide Allergy Verified 03/05/17 16:57 Antibiotics) Discharge Summary: Patient was started on ceftriaxone 1 g IV today and azithromycin 500 mg BID. Patient was started on high flow nebulization treatments. Patient breathing status did improve slowly over the course hospitalization. Patient did have some difficulties with voiding. An ultrasound for postvoid residual was done.Patient was able to avoid approximately 70 mL of urine approximately 300 mL of residual left. Patient congestive heart failure remains stable during the hospitalization. Patient does not have any chest pain or chest pressure during her hospitalization. Patient blood sugars however remained elevated in the upper 100 to mid 200 hundred range. Patient had not been previously diagnosed with diabetes mellitus.Patient continued to have some gait disturbing during her hospitalization. Patient was advised to stay for skilled services however refused and wanted to go home. Patient was subsequently discharged in stable condition. Patient did not want home health because she would need to be homebound. - Final Diagnosis (1) Pneumonia Problems: Improved. (2) CAD (coronary artery disease) Problems: stable (3) CHF (congestive heart failure) Problems: stable (4) Essential hypertension Problems: stable (5) Voiding difficulty Problems: will get urology appointment for further evaluation.
== END 2017-03-04 12:19 | disposition home or self-care (01) | DRG 194 ==
LOC: ED 10:22 → SOUTH 12:28
PROVIDERS: ADMIT Family Medicine; ATTEND Family Medicine
DX: J18.9 Pneumonia, unspecified organism (principal); I50.20 Unspecified systolic (congestive) heart failure; I25.10 Atherosclerotic heart disease of native coronary artery without angina pectoris; I11.0 Hypertensive heart disease with heart failure; R39.198 Other difficulties with micturition
CPT/HCPCS: 36415; 71020; 76857; 80048; 80053; 81002; 83036; 83880; 85025; 87040; 87070; 87086; 87880; 93005; J0456; J0696; J1650; J1940; J7030; J7050; J7626; 99223; 99233; 99238; 99284; S1016

== ENCOUNTER 2017-03-05 16:36 | Inpatient (IN) | payer MEDICARE, OTHER ==
--- NOTE | 2017-03-05 16:57 | ED Physician Documentation ---
General Adult - HISTORIAN Historian: patient - HPI Stated Complaint: sob Chief Complaint: General Adult Onset: days ago Timing: still present Severity: moderate Further Comments: yes (Pt is an 86 yo female discharged from [facility] yesterday after admission for pneumonia, CHF and urinary retention. Pt was sent home on oral Levaquin and Azithromycin and Lasix as well as other meds and returns today with some wheezing and chief complaint of painful feet, which have some swelling. Pt has not had chest pain, fever, n/v.) - ROS CONST: no problems EYES/ENT: none CVS/RESP: shortness of breath, other (swollen feet) GI/: none MS/SKIN/LYMPH: none - PAST HX Past History: other (CAD, CHF, HTN, [place], HLD, Pneumonia) Surgeries/Procedures: other (appendectomy, Total Knee replacements, Tonsillectomy, CEA, cervical discectomy, PCI w stenting 2006, PCI w/o stenting 1995.) Allergies/Adverse Reactions: Allergies Allergy/AdvReac Type Severity Reaction Status Date / Time Penicillins Allergy Verified 03/05/17 16:57 Sulfa (Sulfonamide Allergy Verified 03/05/17 16:57 Antibiotics) Home Medications: Ambulatory Orders Medication Instructions Recorded Aspirin [Kadie] 81 mg PO DAILY 03/01/17 Carvedilol [Coreg] 6.25 mg PO BS 03/01/17 Cholecalciferol [Vitamin D-3] 1,000 unit PO BID 03/01/17 Ticagrelor [Brilinta] 90 mg PO BID 03/01/17 Azithromycin [Zithromax] 250 mg PO DAILY #2 tablet 03/04/17 Ipratropium/Albuterol Sulfate 3 ml NEB Q4 #60 vial 03/04/17 [Duoneb] Levofloxacin [Levaquin] 500 mg PO D #7 tablet 03/04/17 - SOCIAL HX Smoking History: quit greater than 1 year - FAMILY HX Family History: No - VITAL SIGNS Vital Signs: Vital Signs Temp Pulse Resp BP Pulse Ox 126/59 03/04/17 10:02 - REVIEWED ASSESSMENTS Nursing Assessment Reviewed: Yes Vitals Reviewed: Yes Progress - Progress Progress: Lasix 40 mg IV Admit to Skilled, Dr. Steele. - EKG/XRAY/CT EKG: NSR (HR=81; 1st degree AV block; LAD; unchanged since Jun 2015.) XRAY: chest (Stable chronic interstitial changes. No focal infiltrate/effusion.) General Adult Physical Exam - PHYSICAL EXAM GENERAL APPEARANCE: mild distress EENT: pharynx normal NECK: normal inspection, supple RESPIRATORY: no resp distress, chest non-tender, wheezes, rales CVS: reg rate & rhythm, heart sounds normal ABDOMEN: soft, no organomegaly, normal bowel sounds BACK: normal inspection, no CVA tenderness SKIN: warm/dry, normal color EXTREMITIES: edema (1+ pedal), tenderness NEURO: motor nml, sensation nml Discharge Clincal Impression: foot swelling, urinary retention Pneumonia Qualifiers: Pneumonia type: due to unspecified organism Laterality: bilateral Lung location : unspecified part of lung Qualified Code(s): J18.9 - Pneumonia, unspecified organism CHF (congestive heart failure) Qualifiers: Congestive heart failure type: unspecified congestive heart failure type Congestive heart failure chronicity: unspecified congestive heart failure chronicity Qualified Code(s): I50.9 - Heart failure, unspecified Referrals: Alexander Steele MD [Primary Care Provider] - Home Medications: Ambulatory Orders Aspirin [Kadie] 81 mg PO DAILY 03/01/17 Carvedilol [Coreg] 6.25 mg PO BS 03/01/17 Cholecalciferol [Vitamin D-3] 1,000 unit PO BID 03/01/17 Ticagrelor [Brilinta] 90 mg PO BID 03/01/17 Azithromycin [Zithromax] 250 mg PO DAILY #2 tablet 03/04/17 Ipratropium/Albuterol Sulfate [Duoneb] 3 ml NEB Q4 #60 vial 03/04/17 Levofloxacin [Levaquin] 500 mg PO D #7 tablet 03/04/17 Condition: Stable Disposition: 09 ADMITTED INPATIENT Decision to Admit: [id number] Decision Time: 18:20
[2017-03-05] MEDS ORDERED: IPRATROPIUM/ALBUTEROL SULFATE 3 ML AMPUL.NEB NEB ONE ×2 (17:16→17:20)
[2017-03-05 17:25] LABS: BASOPHILS % 0.6 (0.0-1.5); EOSINOPHILS % 3.2 % (0.0-6.8); MEAN CORPUSCULAR HEMOGLOBIN 31.4 pg (28.0-34.0); MEAN CORPUSCULAR VOLUME 91.9 fl (80.0-100.0); MONOCYTES % 4.9 % (0.0-11.0); NEUTROPHILS # 9.8 # k/uL (1.4-7.7)
[2017-03-05 17:36] LABS: eGFR (African) > 60; eGFR (Non-African) > 60
[2017-03-05] MEDS ORDERED: FUROSEMIDE 40 MG/4 ML VIAL IVP ONE (18:04)
[2017-03-05] MEDS: FUROSEMIDE 40 MG/4 ML VIAL IVP SCH (18:28)
[2017-03-05] MEDS ORDERED: AZITHROMYCIN 250 MG in 0.9 % SODIUM CHLORIDE 250 ML IV SCH (19:00)
[2017-03-05 19:09] VITALS: BMI 31.4
[2017-03-05] MEDS ORDERED: SALINE FLUSH 10 ML DISP.SYRIN IVF ONE (19:37)
[2017-03-05] MEDS ORDERED: SIMVASTATIN 20 MG TABLET ONE (19:37)
[2017-03-05] MEDS ORDERED: 0.9 % SODIUM CHLORIDE 250 ML IV ONE (19:37)
[2017-03-05] MEDS ORDERED: AZITHROMYCIN 500 MG VIAL IV ONE (19:37)
--- NOTE | 2017-03-05 19:49 | Diagnostic Imaging Report ---
SELVIN DOE [facility] [address] [facility] [address] [place] [address]. [id number] Report Submission Date: Mar 05, 2017 5:32:57 PM CDT Patient Study Name: STEPHIE YBARRA Date: Mar 05, 2017 5:07:40 PM CDT Modality Type: CR Gender: F Description: CHEST : 30 Institution: [facility] Physician: SELVIN DOE Examination: Portable chest History: Chest discomfort Comparison exam: 03 March 2017 Findings: Single view of the chest demonstrates a normal cardiac size. Tortuosity of thoracic aorta with vascular calcifications involving the aortic arch. Chronic interstitial changes. No focal consolidative process or blunting of the costophrenic margins. Scattered stable pulmonary granuloma. Osseous structures are appropriate for age. Impression: Stable chronic interstitial changes. No focal infiltrate/effusion. Electronically signed on Mar 05, 2017 5:32:57 PM CDT by: Alf HWANG
[2017-03-05] MEDS ORDERED: ACETAMINOPHEN 500 MG TABLET PO PRN (20:23)
[2017-03-05] MEDS ORDERED: ACETAMINOPHEN 500 MG TABLET ONE (20:45)
[2017-03-05] MEDS: DULoxetine HCL 30 MG CAPSULE.DR PO SCH (20:47)
[2017-03-05] MEDS: PRAVASTATIN SODIUM 20 MG TABLET PO SCH (20:47)
[2017-03-05] MEDS: CARVEDILOL 6.25 MG TABLET PO SCH (20:47)
[2017-03-05] MEDS: CHOLECALCIFEROL (VIT D3) 1,000 UNIT TABLET PO SCH (20:48)
[2017-03-05] MEDS: IPRATROPIUM/ALBUTEROL SULFATE 3 ML AMPUL.NEB NEB SCH (20:59)
[2017-03-05] MEDS ORDERED: [UNRECOGNIZED DRUG - MIXTURE] PO SCH (21:00)
[2017-03-05] MEDS ORDERED: [UNRECOGNIZED DRUG - OTHER] PO SCH (21:00)
[2017-03-05] MEDS ORDERED: SIMVASTATIN 20 MG TABLET PO SCH (21:00)
[2017-03-06] MEDS: ACETAMINOPHEN 500 MG TABLET PO PRN (01:02)
[2017-03-06] MEDS: IPRATROPIUM/ALBUTEROL SULFATE 3 ML AMPUL.NEB NEB SCH ×2 (03:45→06:12)
[2017-03-06] MEDS ORDERED: IPRATROPIUM/ALBUTEROL SULFATE 3 ML AMPUL.NEB NEB PRN (06:11)
[2017-03-06] MEDS: FUROSEMIDE 40 MG/4 ML VIAL IVP SCH ×2 (06:13→14:56)
[2017-03-06 07:22] LABS: eGFR (African) > 60; eGFR (Non-African) > 60
[2017-03-06] MEDS ORDERED: CARVEDILOL 6.25 MG TABLET PO SCH (08:00)
[2017-03-06] MEDS: LEVOFLOXACIN 500 MG TABLET PO SCH (08:25)
[2017-03-06] MEDS: CARVEDILOL 6.25 MG TABLET PO SCH ×2 (08:25→20:07)
[2017-03-06] MEDS: BRILINTA 90 MG PO SCH ×2 (08:25→20:07)
[2017-03-06] MEDS: CHOLECALCIFEROL (VIT D3) 1,000 UNIT TABLET PO SCH ×2 (08:25→20:06)
[2017-03-06] MEDS: LISINOPRIL 5 MG TABLET PO SCH (08:25)
--- NOTE | 2017-03-06 08:38 | History and Physical Report ---
History of Present Illnes - History of Present Illness Reason for Visit: gait disturbance History of Present Illness: 86-year-old white female who was recently admitted to the hospital for treatment of pneumonia. During her hospital stay patient was noted to be somewhat debilitated. Patient was encouraged to stay for further physical and occupational therapy but she did not want to. Patient states that she did well at home for approximately 1 to 1 1/2 days. Patient then begin having a lot of pain associated with her feet bilaterally. Patient states she is not had pain in her feet like this before. Denies any traumatic injury. Patient is not had any increased swelling to her feet. Patient states that her breathing appeared to be stable. However patient continued to be weak and was felt to be a high fall risk. Patient was subsequently admitted to [facility] for further rehab services. - Past Medical History Cardiac: CAD, CHF, HTN, [place], Hyperlipidemia Pulmonary: Pneumonia - Past Surgical History Past Surgical History: Appendectomy, Total Knee Replacement (2006, 2011), Tonsillectomy, Other (carotid endarterectomy 1995, cervical discectomy 2004, PCI w stenting 2006, PCI w/o stenting 1995, ,) - Past Social History Smoke: No, Quit (1954) Alcohol: None Drugs: None Lives: With Family () - Health Maintenance Health Maintenance: Influenza Vaccine, Pneumococcal Vaccine Pneumonia Vaccine: Yes Resuscitation Status: Full Code - Unable to Obtain History Unable to Obtain: No Review of Systems - Review of Systems Constitutional: Weakness. negative: Fever, Chills Eyes: negative: pain, vision change ENT: negative: Ear Pain, Ear Discharge, Nose Pain, Nose Discharge, Nose Congestion, Mouth Swelling Respiratory: negative: Cough, Dry, Shortness of Breath, Hemoptysis, SOB with Excertion, Pleuritic Pain, Sputum, Wheezing Cardiovascular: negative: Chest Pain, Palpitations, Orthopnea, Paroxysmal Noc. Dyspnea, Edema, [place] Gastrointestinal: negative: Nausea, Vomiting, Abdominal Pain, Diarrhea, Constipation, Melena, Hematochezia Genitourinary: Frequency, Retention. negative: Dysuria, Incontinence Musculoskeletal: negative: Neck Pain, Shoulder Pain Skin: Other (pain in feet). negative: Rash Neurological: negative: Weakness, Numbness, Incoordination - Medications/Allergies Allergies/Adverse Reactions: Allergies Allergy/AdvReac Type Severity Reaction Status Date / Time Penicillins Allergy Verified 03/05/17 16:57 Sulfa (Sulfonamide Allergy Verified 03/05/17 16:57 Antibiotics) Current Inpatient Medications: Current Inpatient Medications Acetaminophen (Tylenol Extra Strength) 500 mg PO Q4H PRN PRN Reason: PAIN OR TEMPERATURE > 101 Last Admin: 03/06/17 01:02 Dose: 500 mg Albuterol/Ipratropium (Duoneb) 3 ml NEB Q4 PRN PRN Reason: Wheezing Azithromycin (Zithromax) 250 mg PO DAILY [facility] Stop: 03/07/17 08:59 Last Admin: 03/06/17 08:25 Dose: 250 mg Carvedilol (Coreg) 6.25 mg PO BID [facility] Last Admin: 03/06/17 08:25 Dose: 6.25 mg Cholecalciferol (Vitamin D-3) 1,000 unit PO BID [facility] Last Admin: 03/06/17 08:25 Dose: 1,000 unit Duloxetine HCl (Cymbalta) 60 mg PO [facility] Last Admin: 03/05/17 20:47 Dose: 60 mg Furosemide (Lasix) 40 mg IVP 714 [facility] Last Admin: 03/06/17 06:13 Dose: 40 mg Levofloxacin (Levaquin) 500 mg PO DAILY [facility] Stop: 03/13/17 09:00 Last Admin: 03/06/17 08:25 Dose: 500 mg Lisinopril (Prinivil) 5 mg PO DAILY [facility] Last Admin: 03/06/17 08:25 Dose: Not Given Miscellaneous ( Aspirin/Placebo) 81 mg PO HS [facility] Last Admin: 03/05/17 20:46 Dose: 81 mg Miscellaneous (Patient Own Med) 1 each PO BID [facility] Last Admin: 03/06/17 08:25 Dose: 1 each Pravastatin Sodium (Pravachol) 40 mg PO HS [facility] Last Admin: 03/05/17 20:47 Dose: 40 mg Exam - Exam Vital Signs: Vital Signs (72 hours) 03/05/17 03/05/17 03/05/17 18:36 19:01 19:23 Temperature 98.2 F 96.7 F L 96.7 F L Pulse Rate [ 84 91 H 91 H Pulse ox] Respiratory 24 20 20 Rate Blood Pressure 132/74 137/59 137/59 [Left Arm] Blood Pressure 126/59 [Right Arm] O2 Sat by Pulse 92 90 L 90 L Oximetry 03/05/17 20:28 Temperature Pulse Rate [ 91 H Pulse ox] Respiratory 20 Rate Blood Pressure [Left Arm] Blood Pressure [Right Arm] O2 Sat by Pulse Oximetry General: Alert, Oriented to Person, Oriented to Place, Oriented to Time, Cooperative, Moderate distress HEENT: Atraumatic, PERRLA, Nose Mucous membr. moist/[place] Neck: Normal Range of Motion. No: Stridor, Rigidity, Lymphadenopathy Carotids: WNL Thyroid: WNL Lungs: Clear to auscultation, Normal air movement, Speaks full Sentences, Rhonchi (few scattered). No: Respiratory Distress, Wheezes, Rales Cardiovascular: Regular rate, Normal S1, Normal S2. No: No murmurs Abdomen: Normal bowel sounds, Soft, No tenderness, No hepatospenomegaly, No masses. No: Distended Integumentary: Normal, [place], Warm Extremities: Other (flat feet ,very tender to pplpation, mild swelling). No: No clubbing, No cyanosis Neurological: Strength Equal Bilat, Sensation intact, Cranial nerves 3-12 NL, Reflexes 2+. No: Normal gait Psych/Mental Status: Mental status NL, Mood NL, Appropriate Affect - Laboratory Results Laboratory Results: Laboratory Results 03/06/17 06:50 Sodium 131 L Potassium 3.4 L Chloride 94 L Carbon Dioxide 27 BUN 19 Creatinine 1.1 Estimated Creat Clear 60 Est GFR ( Amer) > 60 Est GFR (Non-Af Amer) > 60 Glucose 187 H Calcium 9.6 Assessment/Plan - Assessment/Plan (1) Gait disturbance Status: Acute Current Visit: Yes Assessment: etiology of feet tenderness no known. Well check for possible arthritis, gout, pseudogout. (2) CAD (coronary artery disease) Status: Chronic Current Visit: No Qualifiers: Coronary Disease-Associated Artery/Lesion type: [place] artery [place] vs. transplanted heart: [place] heart Associated angina: without angina Qualified Code(s): I25.10 - Atherosclerotic heart disease of [place] coronary artery without angina pectoris Assessment: continue home meds (3) CHF (congestive heart failure) Status: Chronic Current Visit: No Qualifiers: Congestive heart failure chronicity: chronic Assessment: continue home meds (4) Essential hypertension Status: Chronic Current Visit: No Assessment: continue home meds VTE Assessment - RISK FACTOR SCORE VTE RISK FACTOR SCORES: AGE OVER 60 YEARS, ANTICIPATED BED CONFINEMENT OR IMMOBILIZATION > 24 HOURS - RISK VTE MODERATE RISK: SCORE OF 2 (RISK PROXIMAL DVT 2-4%) PROPHYAXIS NEEDED
[2017-03-06] MEDS: HYDROcodone /APAP 5/325 1 EACH TABLET PO PRN ×2 (08:43→21:56)
[2017-03-06] MEDS ORDERED: ASPIRIN 81 MG CHEW TAB PO SCH (09:00)
[2017-03-06] MEDS ORDERED: LEVOFLOXACIN 500MG/D5W 100ML 500 MG in PREMIX BAG 1 BAG IV SCH (09:00)
[2017-03-06] MEDS ORDERED: AZITHROMYCIN 250 MG TABLET PO SCH (09:00)
[2017-03-06] MEDS: POLYETHYLENE GLYCOL 3350 17 GM POWD.PACK PO SCH (11:09)
--- NOTE | 2017-03-06 14:47 | Diagnostic Imaging Report ---
BIRDIE KILLIAN [facility] [address] [facility] [address] Report Submission Date: Mar 06, 2017 1:44:55 PM CDT Patient Study Name: STEPHIE YBARRA Date: Mar 06, 2017 9:04:50 AM CDT Modality Type: CR Gender: F Description: LOWER EXTREMITY : 30 Institution: [facility] Physician: BIRDIE KILLIAN Examination: Plain film feet History: Bilateral foot discomfort Findings: 3 views of the left and right foot demonstrates generalized osteopenia. Articular degenerative changes. No fracture or dislocation. Calcaneal spurs. No soft tissue swelling. Impression: Osteopenia and degenerative changes. No evidence for fracture. Electronically signed on Mar 06, 2017 1:44:55 PM CDT by: Alf HWANG
[2017-03-06] MEDS: COLCHICINE 0.6 MG PO SCH ×2 (17:59→19:09)
[2017-03-06] MEDS: DULoxetine HCL 30 MG CAPSULE.DR PO SCH (20:06)
[2017-03-06] MEDS: PRAVASTATIN SODIUM 20 MG TABLET PO SCH (20:06)
[2017-03-06] MEDS: [UNRECOGNIZED DRUG - OTHER] PO SCH (20:07)
[2017-03-07] MEDS ORDERED: LISINOPRIL 5 MG TABLET ONE (04:38)
[2017-03-07] MEDS ORDERED: CHOLECALCIFEROL (VIT D3) 1,000 UNIT TABLET PO ONE (04:38)
[2017-03-07] MEDS: FUROSEMIDE 40 MG/4 ML VIAL IVP SCH (07:38)
[2017-03-07] MEDS: LISINOPRIL 5 MG TABLET PO SCH (08:53)
[2017-03-07] MEDS: CHOLECALCIFEROL (VIT D3) 1,000 UNIT TABLET PO SCH ×2 (09:11→19:07)
[2017-03-07] MEDS: FUROSEMIDE 40 MG TABLET PO SCH (09:11)
[2017-03-07] MEDS: BRILINTA 90 MG PO SCH ×2 (09:11→19:07)
[2017-03-07] MEDS: CARVEDILOL 6.25 MG TABLET PO SCH ×2 (09:11→19:07)
[2017-03-07] MEDS: LEVOFLOXACIN 500 MG TABLET PO SCH (09:11)
[2017-03-07] MEDS: INSULIN REGULAR, HUMAN 100 UNIT/ML 3ML VIAL SQ SCH ×2 (11:17→16:45)
[2017-03-07] MEDS: POLYETHYLENE GLYCOL 3350 17 GM POWD.PACK PO SCH (11:19)
[2017-03-07] MEDS: ACETAMINOPHEN 500 MG TABLET PO PRN ×2 (12:38→18:49)
[2017-03-07] MEDS: ENOXAPARIN SODIUM 30 MG/0.3 ML DISP.SYRIN SQ SCH (19:06)
[2017-03-07] MEDS: PRAVASTATIN SODIUM 20 MG TABLET PO SCH (19:07)
[2017-03-07] MEDS: [UNRECOGNIZED DRUG - OTHER] PO SCH (19:07)
[2017-03-07] MEDS: DULoxetine HCL 30 MG CAPSULE.DR PO SCH (19:07)
[2017-03-08] MEDS: INSULIN REGULAR, HUMAN 100 UNIT/ML 3ML VIAL SQ SCH ×3 (07:38→17:36)
[2017-03-08] MEDS: LEVOFLOXACIN 500 MG TABLET PO SCH (08:29)
[2017-03-08] MEDS: FUROSEMIDE 40 MG TABLET PO SCH (08:30)
[2017-03-08] MEDS: CHOLECALCIFEROL (VIT D3) 1,000 UNIT TABLET PO SCH ×2 (08:30→20:06)
[2017-03-08] MEDS: LISINOPRIL 5 MG TABLET PO SCH (08:30)
[2017-03-08] MEDS: CARVEDILOL 6.25 MG TABLET PO SCH ×2 (08:30→20:01)
[2017-03-08] MEDS: BRILINTA 90 MG PO SCH ×2 (08:32→20:05)
[2017-03-08] MEDS: ACETAMINOPHEN 500 MG TABLET PO PRN ×2 (09:30→18:24)
[2017-03-08] MEDS: POLYETHYLENE GLYCOL 3350 17 GM POWD.PACK PO SCH (11:30)
[2017-03-08] MEDS: ENOXAPARIN SODIUM 30 MG/0.3 ML DISP.SYRIN SQ SCH (18:24)
[2017-03-08] MEDS: DULoxetine HCL 30 MG CAPSULE.DR PO SCH (20:02)
[2017-03-08] MEDS: [UNRECOGNIZED DRUG - OTHER] PO SCH (20:06)
[2017-03-08] MEDS: PRAVASTATIN SODIUM 20 MG TABLET PO SCH (20:06)
[2017-03-09] MEDS: ACETAMINOPHEN 500 MG TABLET PO PRN ×3 (01:09→20:36)
[2017-03-09] MEDS: INSULIN REGULAR, HUMAN 100 UNIT/ML 3ML VIAL SQ SCH ×3 (08:34→16:48)
[2017-03-09] MEDS: LEVOFLOXACIN 500 MG TABLET PO SCH (08:39)
[2017-03-09] MEDS: CARVEDILOL 6.25 MG TABLET PO SCH ×2 (08:39→20:36)
[2017-03-09] MEDS: FUROSEMIDE 40 MG TABLET PO SCH (08:39)
[2017-03-09] MEDS: LISINOPRIL 5 MG TABLET PO SCH (08:40)
[2017-03-09] MEDS: CHOLECALCIFEROL (VIT D3) 1,000 UNIT TABLET PO SCH ×2 (08:40→20:36)
[2017-03-09] MEDS: BRILINTA 90 MG PO SCH ×2 (08:41→20:40)
[2017-03-09] MEDS: POLYETHYLENE GLYCOL 3350 17 GM POWD.PACK PO SCH (10:09)
[2017-03-09] MEDS: ENOXAPARIN SODIUM 30 MG/0.3 ML DISP.SYRIN SQ SCH (18:04)
[2017-03-09] MEDS: PRAVASTATIN SODIUM 20 MG TABLET PO SCH (20:36)
[2017-03-09] MEDS: DULoxetine HCL 30 MG CAPSULE.DR PO SCH (20:36)
[2017-03-09] MEDS: [UNRECOGNIZED DRUG - OTHER] PO SCH (20:40)
[2017-03-10] MEDS: ACETAMINOPHEN 500 MG TABLET PO PRN ×4 (04:00→22:47)
[2017-03-10] MEDS: INSULIN REGULAR, HUMAN 100 UNIT/ML 3ML VIAL SQ SCH ×3 (07:31→16:42)
[2017-03-10] MEDS: CARVEDILOL 6.25 MG TABLET PO SCH ×2 (07:38→19:19)
[2017-03-10] MEDS: FUROSEMIDE 40 MG TABLET PO SCH (07:38)
[2017-03-10] MEDS: LEVOFLOXACIN 500 MG TABLET PO SCH (07:39)
[2017-03-10] MEDS: BRILINTA 90 MG PO SCH ×2 (07:39→19:20)
[2017-03-10] MEDS: CHOLECALCIFEROL (VIT D3) 1,000 UNIT TABLET PO SCH ×2 (07:40→19:22)
[2017-03-10] MEDS: ALLOPURINOL 100 MG TABLET PO SCH (07:40)
[2017-03-10] MEDS: LISINOPRIL 5 MG TABLET PO SCH (07:41)
[2017-03-10] MEDS: POLYETHYLENE GLYCOL 3350 17 GM POWD.PACK PO SCH (11:17)
[2017-03-10] MEDS: DULoxetine HCL 30 MG CAPSULE.DR PO SCH (19:19)
[2017-03-10] MEDS: ENOXAPARIN SODIUM 30 MG/0.3 ML DISP.SYRIN SQ SCH (19:19)
[2017-03-10] MEDS: [UNRECOGNIZED DRUG - OTHER] PO SCH (19:20)
[2017-03-10] MEDS: PRAVASTATIN SODIUM 20 MG TABLET PO SCH (19:20)
[2017-03-11] MEDS: ACETAMINOPHEN 500 MG TABLET PO PRN ×2 (03:13→12:11)
[2017-03-11] MEDS: INSULIN REGULAR, HUMAN 100 UNIT/ML 3ML VIAL SQ SCH ×3 (07:26→16:58)
[2017-03-11] MEDS: LISINOPRIL 5 MG TABLET PO SCH (08:29)
[2017-03-11] MEDS: CARVEDILOL 6.25 MG TABLET PO SCH ×2 (08:30→21:12)
[2017-03-11] MEDS: FUROSEMIDE 40 MG TABLET PO SCH (08:30)
[2017-03-11] MEDS: CHOLECALCIFEROL (VIT D3) 1,000 UNIT TABLET PO SCH ×2 (08:31→21:12)
[2017-03-11] MEDS: ALLOPURINOL 100 MG TABLET PO SCH (08:31)
[2017-03-11] MEDS: LEVOFLOXACIN 500 MG TABLET PO SCH (08:31)
[2017-03-11] MEDS: BRILINTA 90 MG PO SCH ×2 (08:33→21:13)
[2017-03-11] MEDS: POLYETHYLENE GLYCOL 3350 17 GM POWD.PACK PO SCH (11:30)
[2017-03-11] MEDS: ENOXAPARIN SODIUM 30 MG/0.3 ML DISP.SYRIN SQ SCH (19:16)
[2017-03-11] MEDS: DULoxetine HCL 30 MG CAPSULE.DR PO SCH (21:11)
[2017-03-11] MEDS: PRAVASTATIN SODIUM 20 MG TABLET PO SCH (21:13)
[2017-03-11] MEDS: [UNRECOGNIZED DRUG - OTHER] PO SCH (21:14)
[2017-03-11] MEDS: HYDROcodone /APAP 5/325 1 EACH TABLET PO PRN ×2 (22:13→22:18)
[2017-03-12] MEDS: INSULIN REGULAR, HUMAN 100 UNIT/ML 3ML VIAL SQ SCH ×3 (07:47→16:32)
[2017-03-12] MEDS: CARVEDILOL 6.25 MG TABLET PO SCH ×2 (08:53→20:03)
[2017-03-12] MEDS: FUROSEMIDE 40 MG TABLET PO SCH (08:53)
[2017-03-12] MEDS: LEVOFLOXACIN 500 MG TABLET PO SCH (08:54)
[2017-03-12] MEDS: LISINOPRIL 5 MG TABLET PO SCH (08:55)
[2017-03-12] MEDS: BRILINTA 90 MG PO SCH ×2 (08:55→20:04)
[2017-03-12] MEDS: CHOLECALCIFEROL (VIT D3) 1,000 UNIT TABLET PO SCH ×2 (08:55→20:03)
[2017-03-12] MEDS: ALLOPURINOL 100 MG TABLET PO SCH (08:55)
[2017-03-12] MEDS: ACETAMINOPHEN 500 MG TABLET PO PRN ×2 (11:33→17:58)
[2017-03-12] MEDS: POLYETHYLENE GLYCOL 3350 17 GM POWD.PACK PO SCH (11:34)
[2017-03-12] MEDS: ENOXAPARIN SODIUM 30 MG/0.3 ML DISP.SYRIN SQ SCH (18:02)
[2017-03-12] MEDS: HYDROcodone /APAP 5/325 1 EACH TABLET PO PRN (20:03)
[2017-03-12] MEDS: PRAVASTATIN SODIUM 20 MG TABLET PO SCH (20:03)
[2017-03-12] MEDS: DULoxetine HCL 30 MG CAPSULE.DR PO SCH (20:03)
[2017-03-12] MEDS: [UNRECOGNIZED DRUG - OTHER] PO SCH (20:04)
[2017-03-13] MEDS: HYDROcodone /APAP 5/325 1 EACH TABLET PO PRN ×2 (01:12→22:05)
[2017-03-13] MEDS: INSULIN REGULAR, HUMAN 100 UNIT/ML 3ML VIAL SQ SCH ×3 (08:20→17:19)
[2017-03-13] MEDS: LISINOPRIL 5 MG TABLET PO SCH (08:42)
[2017-03-13] MEDS: ALLOPURINOL 100 MG TABLET PO SCH (08:42)
[2017-03-13] MEDS: FUROSEMIDE 40 MG TABLET PO SCH (08:43)
[2017-03-13] MEDS: CHOLECALCIFEROL (VIT D3) 1,000 UNIT TABLET PO SCH ×2 (08:43→20:19)
[2017-03-13] MEDS: LEVOFLOXACIN 500 MG TABLET PO SCH (08:43)
[2017-03-13] MEDS: CARVEDILOL 6.25 MG TABLET PO SCH ×2 (08:43→20:19)
[2017-03-13] MEDS: BRILINTA 90 MG PO SCH ×2 (08:45→20:20)
[2017-03-13] MEDS: ACETAMINOPHEN 500 MG TABLET PO PRN ×2 (09:06→13:45)
[2017-03-13] MEDS: POLYETHYLENE GLYCOL 3350 17 GM POWD.PACK PO SCH (11:11)
[2017-03-13] MEDS: ENOXAPARIN SODIUM 30 MG/0.3 ML DISP.SYRIN SQ SCH (18:37)
[2017-03-13] MEDS: DULoxetine HCL 30 MG CAPSULE.DR PO SCH (20:19)
[2017-03-13] MEDS: PRAVASTATIN SODIUM 20 MG TABLET PO SCH (20:19)
[2017-03-13] MEDS: [UNRECOGNIZED DRUG - OTHER] PO SCH (20:20)
[2017-03-14] MEDS: INSULIN REGULAR, HUMAN 100 UNIT/ML 3ML VIAL SQ SCH ×3 (07:52→16:33)
[2017-03-14] MEDS: ACETAMINOPHEN 500 MG TABLET PO PRN ×2 (08:20→17:52)
[2017-03-14] MEDS: FUROSEMIDE 40 MG TABLET PO SCH (08:20)
[2017-03-14] MEDS: CARVEDILOL 6.25 MG TABLET PO SCH ×2 (08:20→20:09)
[2017-03-14] MEDS: LISINOPRIL 5 MG TABLET PO SCH (08:22)
[2017-03-14] MEDS: CHOLECALCIFEROL (VIT D3) 1,000 UNIT TABLET PO SCH ×2 (08:22→20:08)
[2017-03-14] MEDS: ALLOPURINOL 100 MG TABLET PO SCH (08:22)
[2017-03-14] MEDS: BRILINTA 90 MG PO SCH ×2 (08:24→20:08)
[2017-03-14] MEDS: POLYETHYLENE GLYCOL 3350 17 GM POWD.PACK PO SCH (12:14)
[2017-03-14] MEDS: ENOXAPARIN SODIUM 30 MG/0.3 ML DISP.SYRIN SQ SCH (18:39)
[2017-03-14] MEDS: DULoxetine HCL 30 MG CAPSULE.DR PO SCH (20:07)
[2017-03-14] MEDS: PRAVASTATIN SODIUM 20 MG TABLET PO SCH (20:08)
[2017-03-14] MEDS: [UNRECOGNIZED DRUG - OTHER] PO SCH (20:08)
[2017-03-15] MEDS: INSULIN REGULAR, HUMAN 100 UNIT/ML 3ML VIAL SQ SCH ×3 (07:22→16:19)
[2017-03-15] MEDS: CARVEDILOL 6.25 MG TABLET PO SCH ×2 (08:23→20:01)
[2017-03-15] MEDS: FUROSEMIDE 40 MG TABLET PO SCH (08:23)
[2017-03-15] MEDS: LISINOPRIL 5 MG TABLET PO SCH (08:24)
[2017-03-15] MEDS: BRILINTA 90 MG PO SCH ×2 (08:24→20:02)
[2017-03-15] MEDS: ALLOPURINOL 100 MG TABLET PO SCH (08:25)
[2017-03-15] MEDS: CHOLECALCIFEROL (VIT D3) 1,000 UNIT TABLET PO SCH ×2 (08:25→20:07)
[2017-03-15] MEDS: ACETAMINOPHEN 500 MG TABLET PO PRN (13:12)
[2017-03-15] MEDS: POLYETHYLENE GLYCOL 3350 17 GM POWD.PACK PO SCH (16:18)
[2017-03-15] MEDS: ENOXAPARIN SODIUM 30 MG/0.3 ML DISP.SYRIN SQ SCH (18:24)
[2017-03-15] MEDS: DULoxetine HCL 30 MG CAPSULE.DR PO SCH (20:01)
[2017-03-15] MEDS: [UNRECOGNIZED DRUG - OTHER] PO SCH (20:02)
[2017-03-15] MEDS: PRAVASTATIN SODIUM 20 MG TABLET PO SCH (20:03)
[2017-03-15] MEDS: HYDROcodone /APAP 5/325 1 EACH TABLET PO PRN (21:36)
[2017-03-16] MEDS: ACETAMINOPHEN 500 MG TABLET PO PRN ×3 (08:02→19:30)
[2017-03-16] MEDS: CHOLECALCIFEROL (VIT D3) 1,000 UNIT TABLET PO SCH ×2 (08:02→20:53)
[2017-03-16] MEDS: CARVEDILOL 6.25 MG TABLET PO SCH ×2 (08:02→20:51)
[2017-03-16] MEDS: LISINOPRIL 5 MG TABLET PO SCH (08:02)
[2017-03-16] MEDS: INSULIN REGULAR, HUMAN 100 UNIT/ML 3ML VIAL SQ SCH ×3 (08:02→17:37)
[2017-03-16] MEDS: BRILINTA 90 MG PO SCH ×2 (08:03→20:54)
[2017-03-16] MEDS: FUROSEMIDE 40 MG TABLET PO SCH (08:03)
[2017-03-16] MEDS: ALLOPURINOL 100 MG TABLET PO SCH (08:03)
[2017-03-16] MEDS: POLYETHYLENE GLYCOL 3350 17 GM POWD.PACK PO SCH (11:58)
[2017-03-16] MEDS: ENOXAPARIN SODIUM 30 MG/0.3 ML DISP.SYRIN SQ SCH (17:37)
[2017-03-16] MEDS: DULoxetine HCL 30 MG CAPSULE.DR PO SCH (20:52)
[2017-03-16] MEDS: PRAVASTATIN SODIUM 20 MG TABLET PO SCH (20:53)
[2017-03-16] MEDS: [UNRECOGNIZED DRUG - OTHER] PO SCH (20:54)
[2017-03-16] MEDS: MELATONIN 3 MG TABLET PO SCH (20:59)
[2017-03-17] MEDS: INSULIN REGULAR, HUMAN 100 UNIT/ML 3ML VIAL SQ SCH ×3 (08:02→16:31)
[2017-03-17] MEDS: CARVEDILOL 6.25 MG TABLET PO SCH ×2 (08:03→20:03)
[2017-03-17] MEDS: BRILINTA 90 MG PO SCH ×2 (08:03→20:05)
[2017-03-17] MEDS: FUROSEMIDE 40 MG TABLET PO SCH (08:03)
[2017-03-17] MEDS: LISINOPRIL 5 MG TABLET PO SCH (08:03)
[2017-03-17] MEDS: CHOLECALCIFEROL (VIT D3) 1,000 UNIT TABLET PO SCH ×2 (08:03→20:04)
[2017-03-17] MEDS: ALLOPURINOL 100 MG TABLET PO SCH (08:03)
[2017-03-17] MEDS: ACETAMINOPHEN 500 MG TABLET PO PRN ×2 (11:00→20:07)
[2017-03-17] MEDS: POLYETHYLENE GLYCOL 3350 17 GM POWD.PACK PO SCH (12:50)
[2017-03-17] MEDS: ENOXAPARIN SODIUM 30 MG/0.3 ML DISP.SYRIN SQ SCH (17:59)
[2017-03-17] MEDS: DULoxetine HCL 30 MG CAPSULE.DR PO SCH (20:03)
[2017-03-17] MEDS: PRAVASTATIN SODIUM 20 MG TABLET PO SCH (20:04)
[2017-03-17] MEDS: MELATONIN 3 MG TABLET PO SCH (20:05)
[2017-03-17] MEDS: [UNRECOGNIZED DRUG - OTHER] PO SCH (20:05)
[2017-03-18] MEDS: INSULIN REGULAR, HUMAN 100 UNIT/ML 3ML VIAL SQ SCH ×3 (07:25→16:49)
[2017-03-18] MEDS: BRILINTA 90 MG PO SCH ×2 (08:17→20:35)
[2017-03-18] MEDS: ALLOPURINOL 100 MG TABLET PO SCH (08:17)
[2017-03-18] MEDS: FUROSEMIDE 40 MG TABLET PO SCH (08:17)
[2017-03-18] MEDS: CHOLECALCIFEROL (VIT D3) 1,000 UNIT TABLET PO SCH ×2 (08:17→20:33)
[2017-03-18] MEDS: LISINOPRIL 5 MG TABLET PO SCH (08:17)
[2017-03-18] MEDS: CARVEDILOL 6.25 MG TABLET PO SCH ×2 (08:17→20:30)
[2017-03-18] MEDS: POLYETHYLENE GLYCOL 3350 17 GM POWD.PACK PO SCH (12:19)
[2017-03-18] MEDS: ACETAMINOPHEN 500 MG TABLET PO PRN ×2 (12:51→18:32)
[2017-03-18] MEDS: ENOXAPARIN SODIUM 30 MG/0.3 ML DISP.SYRIN SQ SCH (18:24)
[2017-03-18] MEDS: DULoxetine HCL 30 MG CAPSULE.DR PO SCH (20:30)
[2017-03-18] MEDS: PRAVASTATIN SODIUM 20 MG TABLET PO SCH (20:31)
[2017-03-18] MEDS: [UNRECOGNIZED DRUG - OTHER] PO SCH (20:35)
[2017-03-18] MEDS: MELATONIN 3 MG TABLET PO SCH (20:35)
[2017-03-18] MEDS: HYDROcodone /APAP 5/325 1 EACH TABLET PO PRN (20:36)
[2017-03-19] MEDS: INSULIN REGULAR, HUMAN 100 UNIT/ML 3ML VIAL SQ SCH ×3 (07:22→16:11)
[2017-03-19] MEDS: CHOLECALCIFEROL (VIT D3) 1,000 UNIT TABLET PO SCH ×2 (08:07→21:01)
[2017-03-19] MEDS: FUROSEMIDE 40 MG TABLET PO SCH (08:07)
[2017-03-19] MEDS: LISINOPRIL 5 MG TABLET PO SCH (08:07)
[2017-03-19] MEDS: CARVEDILOL 6.25 MG TABLET PO SCH ×2 (08:07→21:01)
[2017-03-19] MEDS: BRILINTA 90 MG PO SCH ×2 (08:08→21:01)
[2017-03-19] MEDS: ALLOPURINOL 100 MG TABLET PO SCH (08:08)
[2017-03-19] MEDS: POLYETHYLENE GLYCOL 3350 17 GM POWD.PACK PO SCH (10:51)
[2017-03-19] MEDS: ACETAMINOPHEN 500 MG TABLET PO PRN (10:59)
[2017-03-19] MEDS: ENOXAPARIN SODIUM 30 MG/0.3 ML DISP.SYRIN SQ SCH (18:35)
[2017-03-19] MEDS: PRAVASTATIN SODIUM 20 MG TABLET PO SCH (21:01)
[2017-03-19] MEDS: DULoxetine HCL 30 MG CAPSULE.DR PO SCH (21:01)
[2017-03-19] MEDS: [UNRECOGNIZED DRUG - OTHER] PO SCH (21:02)
[2017-03-19] MEDS: MELATONIN 3 MG TABLET PO SCH (21:03)
[2017-03-20] MEDS: INSULIN REGULAR, HUMAN 100 UNIT/ML 3ML VIAL SQ SCH ×3 (07:32→17:06)
[2017-03-20] MEDS: BRILINTA 90 MG PO SCH ×2 (09:47→20:10)
[2017-03-20] MEDS: LISINOPRIL 5 MG TABLET PO SCH (09:47)
[2017-03-20] MEDS: ALLOPURINOL 100 MG TABLET PO SCH (09:47)
[2017-03-20] MEDS: FUROSEMIDE 40 MG TABLET PO SCH (09:47)
[2017-03-20] MEDS: CHOLECALCIFEROL (VIT D3) 1,000 UNIT TABLET PO SCH ×2 (09:47→20:10)
[2017-03-20] MEDS: CARVEDILOL 6.25 MG TABLET PO SCH ×2 (09:47→20:08)
[2017-03-20] MEDS: ACETAMINOPHEN 500 MG TABLET PO PRN ×2 (09:54→15:11)
[2017-03-20] MEDS: POLYETHYLENE GLYCOL 3350 17 GM POWD.PACK PO SCH (11:06)
[2017-03-20] MEDS: ENOXAPARIN SODIUM 30 MG/0.3 ML DISP.SYRIN SQ SCH (18:04)
[2017-03-20] MEDS: DULoxetine HCL 30 MG CAPSULE.DR PO SCH (20:08)
[2017-03-20] MEDS: MELATONIN 3 MG TABLET PO SCH (20:09)
[2017-03-20] MEDS: [UNRECOGNIZED DRUG - OTHER] PO SCH (20:10)
[2017-03-20] MEDS: PRAVASTATIN SODIUM 20 MG TABLET PO SCH (20:10)
[2017-03-20] MEDS: HYDROcodone /APAP 5/325 1 EACH TABLET PO PRN (21:28)
[2017-03-21] MEDS: INSULIN REGULAR, HUMAN 100 UNIT/ML 3ML VIAL SQ SCH ×3 (08:26→17:31)
[2017-03-21] MEDS: BRILINTA 90 MG PO SCH ×2 (09:35→19:33)
[2017-03-21] MEDS: CARVEDILOL 6.25 MG TABLET PO SCH ×2 (09:35→19:32)
[2017-03-21] MEDS: LISINOPRIL 5 MG TABLET PO SCH (09:35)
[2017-03-21] MEDS: CHOLECALCIFEROL (VIT D3) 1,000 UNIT TABLET PO SCH ×2 (09:35→19:32)
[2017-03-21] MEDS: ALLOPURINOL 100 MG TABLET PO SCH (09:35)
[2017-03-21] MEDS: FUROSEMIDE 40 MG TABLET PO SCH (09:35)
[2017-03-21] MEDS: POLYETHYLENE GLYCOL 3350 17 GM POWD.PACK PO SCH (09:35)
[2017-03-21] MEDS: ACETAMINOPHEN 500 MG TABLET PO PRN (09:37)
[2017-03-21 17:26] LABS: eGFR (African) > 60; eGFR (Non-African) > 60
[2017-03-21] MEDS: DULoxetine HCL 30 MG CAPSULE.DR PO SCH (19:32)
[2017-03-21] MEDS: PRAVASTATIN SODIUM 20 MG TABLET PO SCH (19:32)
[2017-03-21] MEDS: MELATONIN 3 MG TABLET PO SCH (19:32)
[2017-03-21] MEDS: [UNRECOGNIZED DRUG - OTHER] PO SCH (19:33)
[2017-03-21] MEDS: HYDROcodone /APAP 5/325 1 EACH TABLET PO PRN (21:15)
[2017-03-22] MEDS: INSULIN REGULAR, HUMAN 100 UNIT/ML 3ML VIAL SQ SCH ×2 (07:41→11:32)
[2017-03-22] MEDS: CARVEDILOL 6.25 MG TABLET PO SCH (08:08)
[2017-03-22] MEDS: FUROSEMIDE 40 MG TABLET PO SCH (08:08)
[2017-03-22] MEDS: CHOLECALCIFEROL (VIT D3) 1,000 UNIT TABLET PO SCH (08:10)
[2017-03-22] MEDS: BRILINTA 90 MG PO SCH (08:10)
[2017-03-22] MEDS: ALLOPURINOL 100 MG TABLET PO SCH (08:10)
[2017-03-22] MEDS: LISINOPRIL 5 MG TABLET PO SCH (08:10)
[2017-03-22] MEDS: POLYETHYLENE GLYCOL 3350 17 GM POWD.PACK PO SCH (11:34)
[2017-03-22 13:06] VITALS: BP 111/56
== END 2017-03-22 12:58 | DRG 93 ==
LOC: ED 16:36 → SOUTH 18:24
PROVIDERS: ADMIT Family Medicine; ATTEND Family Medicine
DX: R26.89 Other abnormalities of gait and mobility (principal); I50.9 Heart failure, unspecified; I25.10 Atherosclerotic heart disease of native coronary artery without angina pectoris; I10 Essential (primary) hypertension
CPT/HCPCS: 36415; 71010; 80048; 80053; 82550; 83880; 84484; 84550; 85025; J0456; J1650; J1940; J7050; A9270-GY; J1815; S1016

== ENCOUNTER 2017-04-19 19:40 | Observation (INO) | payer MEDICARE, OTHER ==
[2017-04-19] MEDS ORDERED: DICYCLOMINE HCL 20 MG TABLET PO ONE (20:11)
--- NOTE | 2017-04-19 20:14 | ED Physician Documentation ---
Abdominal Pain - HISTORIAN Historian: patient - HPI Stated Complaint: abd pain/constipation Chief Complaint: Abdominal Pain Additonal Information: cramping pain , with small "pellets" for BM's. x 3-4 days. Onset: days ago Duration: constant Timing: still present Context: denies: out of country travel Severity: mild Quality: pain, cramping Associated Symptoms: denies: fever, chills, nausea, vomiting, diarrhea, bloody stools Exacerbated by: nothing Relieved by: nothing Further Comments: no - ROS CONST: recent illness GI/: constipation EYES/ENT: none MS/SKIN/LYMPH: none NEURO/PSYCH: none - SOCIAL HX Smoking History: non-smoker Alcohol Use: none Drug Use: none - FAMILY HX Family History: no significant history - PAST HX Past History: bladder infection, cardiac disease Ischemic Bowel Risk Factors: none Other History: diabetes Type 2, hypertension Surgeries/Procedures: appendectomy, endoscopy, cardiac stent Home Medications: Ambulatory Orders Medication Instructions Recorded Aspirin [Kadie] 81 mg PO DAILY 03/01/17 Carvedilol [Coreg] 6.25 mg PO BS 03/01/17 Cholecalciferol [Vitamin D-3] 1,000 unit PO BID 03/01/17 Ticagrelor [Brilinta] 90 mg PO BID 03/01/17 HYDROcodone /APAP 5/325 [[place] 1 each PO Q4 PRN #20 tab 03/22/17 5/325] Allergies/Adverse Reactions: Allergies Allergy/AdvReac Type Severity Reaction Status Date / Time Penicillins Allergy Verified 04/19/17 20:16 Sulfa (Sulfonamide Allergy Verified 04/19/17 20:16 Antibiotics) - VITAL SIGNS Vital Signs: Vital Signs Temp Pulse Resp BP Pulse Ox 97.3 F L 64 20 119/57 95 04/19/17 20:02 04/19/17 20:02 04/19/17 20:02 04/19/17 20:02 04/19/17 20:02 - REVIEWED ASSESSMENTS Nursing Assessment Reviewed: Yes Vitals Reviewed: Yes ED Results Lab/Radiology - Lab Results Lab Results: Lab Results 04/19/17 04/19/17 21:05 21:05 WBC 13.00 K/ul H K/ul (4.00-12.00) RBC 4.25 M/ul M/ul (3.90-5.20) Hgb 13.0 g/dL g/dL (12.0-16.0) Hct 38.3 % % (34.5-46.5) MCV 90.2 fl fl (80.0-100.0) MCH 30.7 pg pg (28.0-34.0) MCHC 34.0 g/dL g/dL (30.0-36.0) RDW 14.4 % H % (11.3-14.3) Plt Count 283 K/mm3 K/mm3 (130-400) Neut % (Auto) 80.3 % H % (39.0-79.0) Lymph % (Auto) 11.6 % L % (16.0-50.0) [place] % (Auto) 3.5 % % (0.0-11.0) Eos % (Auto) 3.3 % % (0.0-6.8) Baso % (Auto) 0.5 (0.0-1.5) Neut # (Auto) 10.4 # k/uL H # k/uL (1.4-7.7) Lymph # (Auto) 1.5 # k/uL # k/uL (0.6-4.0) [place] # (Auto) 0.5 # k/uL # k/uL (0.0-0.9) Eos # (Auto) 0.4 # k/uL # k/uL (0.0-0.6) Baso # (Auto) 0.1 # k/uL # k/uL (0.0-0.5) Reactive Lymphs % 0.8 % % (0.0-5.0) Reactive Lymphs # 0.1 # k/uL # k/uL (0.0-0.8) Sodium 136 mmol/L mmol/L (136-145) Potassium 4.0 mmol/L mmol/L (3.5-5.0) Chloride 95 mmol/L L mmol/L (98-110) Carbon Dioxide 30 mmol/L mmol/L (20-32) BUN 28 mg/dL H mg/dL (10-26) Creatinine 1.2 mg/dL mg/dL (0.4-1.5) Estimated Creat Clear 51 Est GFR ( Amer) > 60 (60 - ) Est GFR (Non-Af Amer) > 60 (60 - ) Glucose 192 mg/dL H mg/dL (70-99) Calcium 9.4 mg/dL mg/dL (8.5-10.5) Total Bilirubin 0.4 mg/dL mg/dL (0.2-1.2) AST 22 U/L U/L (0-41) ALT 20 U/L U/L (0-45) Alkaline Phosphatase 234 U/L H U/L (46-116) Total Protein 8.0 g/dL g/dL (6.0-8.5) Albumin 4.2 g/dL g/dL (3.0-5.5) - Radiology Radiology Impressions: diverticulitis, multiple abd masses. - Orders Orders: ED Orders Category Date Time Status Activity as ordered D Care 04/19/17 23:30 Active Document Bowel Movement Q8H Care 04/19/17 23:[address] [place] NOW Care 04/19/17 23:30 Ordered Observation NOW Care 04/19/17 23:30 Ordered SCD'S (Sequential Compression Devices) NOW Care 04/19/17 23:45 Ordered Vital Signs Q4 Care 04/19/17 23:30 Active Regular Diet 04/19/17 Breakfast Ordered ACUTE ABDOMINAL SERIES [ABD SERIES PA CHEST] [RAD] Stat Exams 04/19/[address] ABD & PELVIS W/O CON Stat Exams 04/19/17 Completed CBC/PLATELET/DIFF Routine Lab 04/19/17 21:05 Completed CMP Routine Lab 04/19/17 21:05 Completed URINALYSIS Routine Lab 04/19/17 Ordered Dicyclomine HCl [Bentyl] Med 04/19/17 20:11 Discontinued 20 mg PO NOW ONE Saline Flush [Normal Saline Flush] Med 04/20/17 09:00 Ordered 3 ml IV BID metroNIDAZOLE/SODIUM CHLORIDE [Flagyl] 500 mg Med 04/19/17 23:45 Ordered Premix Bag [Premix Fluid] 1 bag IV Q6H Resuscitation Status Routine Oth 04/19/17 Ordered Abdominal Pain Physical Exam - Physical Exam General Appearance: no acute distress, alert EENT: ENT inspection normal NECK: normal inspection RESPIRATORY: no resp distress ABDOMEN: soft, normal bowel sounds, no abdominal bruit, no distension, non- tender. No: rigid, tenderness, rebound, distended, guarding BACK: normal inspection SKIN: warm/dry, normal color EXTREMITIES: non-tender, normal range of motion NEURO: oriented X3 Vital Signs: Vital Signs Temp Pulse Resp BP Pulse Ox 97.3 F L 64 20 119/57 95 04/19/17 20:02 04/19/17 20:02 04/19/17 20:02 04/19/17 20:02 04/19/17 20:02 Discharge Clincal Impression: Diverticulitis large intestine Qualifiers: Diverticulitis bleeding: without bleeding Diverticulitis complication: without perforation or abscess Qualified Code(s): K57.32 - Diverticulitis of large intestine without perforation or abscess without bleeding Leukocytosis Qualifiers: Leukocytosis type: unspecified Qualified Code(s): D72.829 - Elevated white blood cell count, unspecified Constipation Qualifiers: Constipation type: other constipation type Qualified Code(s): K59.09 - Other constipation Referrals: Alexander Steele MD [Primary Care Provider] - 2 Days Home Medications: Ambulatory Orders Aspirin [Kadie] 81 mg PO DAILY 03/01/17 Carvedilol [Coreg] 6.25 mg PO BS 03/01/17 Cholecalciferol [Vitamin D-3] 1,000 unit PO BID 03/01/17 Ticagrelor [Brilinta] 90 mg PO BID 03/01/17 HYDROcodone /APAP 5/325 [[place] 5/325] 1 each PO Q4 PRN #20 tab 03/22/17 Condition: Stable Disposition: ADMITTED INPATIENT Decision to Admit: [id number] Date of Decison to Admit: 04/19/17 Decision Time: 23:39
[2017-04-19 21:15] LABS: BASOPHILS % 0.5 (0.0-1.5); EOSINOPHILS % 3.3 % (0.0-6.8); MEAN CORPUSCULAR HEMOGLOBIN 30.7 pg (28.0-34.0); MEAN CORPUSCULAR VOLUME 90.2 fl (80.0-100.0); MONOCYTES % 3.5 % (0.0-11.0); NEUTROPHILS # 10.4 # k/uL (1.4-7.7)
[2017-04-19 21:33] LABS: eGFR (African) > 60; eGFR (Non-African) > 60
--- NOTE | 2017-04-19 21:49 | Diagnostic Imaging Report ---
ARANZA CORDOVA [facility] [address] [facility] [address] [place] [address]. [id number] Report Submission Date: Apr 19, 2017 8:59:20 PM CDT Patient Study Name: STEPHIE YBARRA Date: Apr 19, 2017 8:21:11 PM CDT Modality Type: CR Gender: F Description: ABDOMEN : 30 Institution: [facility] Physician: ARANZA CORDOVA Abdominal obstructures series with AP chest. History: Cramping, constipation. Findings: The heart size is normal. Calcified granuloma seen within right upper lobe. No acute infiltrate is seen. No bowel dilation is present. There is a few air-fluid levels present within the abdomen possibly within the colon with a mild amount of retained stool present. There is rightward curvature in the lower lumbar spine with multilevel degenerative change. Impression: 1. No evidence of bowel obstruction. A few air-fluid levels are present possibly within the colon suggesting possible mild enteritis Electronically signed on Apr 19, 2017 8:59:20 PM CDT by: Benito HWANG
--- NOTE | 2017-04-19 22:44 | Diagnostic Imaging Report ---
ARANZA CORDOVA [facility] [address] Count Includes [facility] [address] [place], [place]. [address] Report Submission Date: Apr 19, 2017 10:41:59 PM CDT Patient Study Name: STEPHIE YBARRA Date: Apr 19, 2017 10:17:26 PM CDT Modality Type: CT\SR Gender: F Description: CT ABD & PELVIS W/O CO : 30 Institution: [facility] Physician: ARANZA CORDOVA CT abdomen and pelvis without contrast Date of study: The of the 19 April 2017 CLINICAL HISTORY: PAIN AND CRAMPING (Hx) / PAIN AND CRAMPING (DICOM Hx) TECHNIQUE: 1.3 mm contiguous axial images of the abdomen and pelvis non contrast. FINDINGS: There are right middle lobe and lingular infiltrates. There is also right lower lobe infiltrate. There is coronary artery calcification minimal pericardial effusion 3 cm x 1 cm hypodensities in the liver probably cysts. There is linear hypodensity in the left lobe of the liver. Cannot rule out focal biliary dilatation. Calcified granulomas are present in the spleen. No adrenal masses seen. Gallstones are present. There splenic artery aortica renal and mesenteric vascular calcification. a Large amount of retained fecal material distends the colon. No retroperitoneal mass or aneurysm is seen. There is lumbar spondylosis. Spinal stenosis is present at L3/L4 and L4/L5. An umbilical hernia contains only fat. Diverticulosis affects the sigmoid colon. There some streaky fat near the inferior sigmoid colon at its junction with the rectum. Considerations are diverticulitis or a mass. Urinary bladder is distended. Femoral artery calcification is present. There is left renal atrophy compared to the right kidney. Femoral artery calcification is noted. Lumbar spine dextroscoliosis is also present. There is a 3.6 cm soft tissue density posterior splenic artery and medial to the kidney. Cannot rule out a mass. Followup scan with contrast is suggested IMPRESSION: Large amount of retained fecal material and a dilated colon proximal to the rectosigmoid colon. Whether this is due to diverticulitis or stricture/mass is indeterminate Extensive vascular calcification. Linear hypodensities in the left lobe of the liver possible focal biliary dilatation Bibasilar infiltrates fibrosis Rounded liver hypodensities in the right lobe ,cysts versus metastatic disease Left renal atrophy. Lumbar spondylosis and spinal stenosis. Minimal pericardial effusion Left colon diverticulosis Between the left kidney and splenic artery there is a well defined soft tissue density measuring 3.8 cm. Cannot rule out mass Electronically signed on Apr 19, 2017 10:41:59 PM CDT by: Michele HWANG
[2017-04-20] MEDS ORDERED: metroNIDAZOLE/SODIUM CHLORIDE 100 ML IV ONE ×4 (00:31→14:36)
[2017-04-20] MEDS: metroNIDAZOLE/SODIUM CHLORIDE 500 MG in PREMIX BAG 1 BAG IV SCH ×4 (00:45→18:03)
[2017-04-20 00:58] VITALS: BMI 29.8
[2017-04-20] MEDS ORDERED: HYDROcodone /APAP 5/325 1 EACH TABLET PO PRN (05:56)
--- NOTE | 2017-04-20 06:00 | History and Physical Report ---
History of Present Illnes - History of Present Illness Reason for Visit: Abdominal pain History of Present Illness: Patient presented to ER with severe abdominal cramping for 3 days. Noted her BM 's had become small and round "like juanjose". Warne she was constipated. Uncontrasted CT in the ER showed large fecal burden vs diverticulitis as well as other abnormalities in the colon. The ER physician felt due to her age, elevated WBC, pain and CT findings she should be admitted for IV antibiotics. - Past Medical History Cardiac: CAD, CHF, HTN, [place], Hyperlipidemia Pulmonary: Pneumonia - Past Surgical History Past Surgical History: Appendectomy, Total Knee Replacement (2006, 2011), Tonsillectomy, Other (carotid endarterectomy 1995, cervical discectomy 2004, PCI w stenting 2006, PCI w/o stenting 1995, ,) - Past Social History Smoke: No, Quit (1954) Alcohol: None Drugs: None Lives: With Family () - Health Maintenance Health Maintenance: Influenza Vaccine, Pneumococcal Vaccine Influenza Vaccine: Current for this Influenza Season Pneumonia Vaccine: Yes Resuscitation Status: Resusciation Status Resuscitation Status Full Code Review of Systems - Review of Systems Constitutional: Weakness. negative: Fever Eyes: negative: pain ENT: negative: Ear Pain, Nose Congestion Respiratory: negative: Cough, Shortness of Breath Cardiovascular: negative: Chest Pain Gastrointestinal: Nausea, Abdominal Pain, Constipation. negative: Vomiting Genitourinary: negative: Dysuria Musculoskeletal: negative: Neck Pain Skin: negative: Rash Neurological: Weakness - Medications/Allergies Allergies/Adverse Reactions: Allergies Allergy/AdvReac Type Severity Reaction Status Date / Time Penicillins Allergy Verified 04/19/17 20:16 Sulfa (Sulfonamide Allergy Verified 04/19/17 20:16 Antibiotics) Current Inpatient Medications: Current Inpatient Medications Metronidazole/Sodium Chloride (500 mg/ PREMIX BAG) 100 mls @ 100 mls/hr IV Q6H [facility] Last Admin: 04/20/17 05:27 Dose: 100 mls/hr Sodium Chloride (Normal Saline Flush) 3 ml IV BID [facility] Exam - Exam Vital Signs: Vital Signs (72 hours) 04/20/17 04/20/17 04/20/17 00:25 02:00 05:54 Temperature 97.4 F L 97.4 F L 97.9 F Pulse Rate [ 72 72 87 Left Pulse ox] Respiratory 16 16 18 Rate Blood Pressure 112/57 112/57 134/83 [Left Arm] Blood Pressure 146/69 [Right Arm] O2 Sat by Pulse 98 98 94 Oximetry General: Alert, Oriented to Person, Oriented to Place, Oriented to Time, Cooperative HEENT: Atraumatic, PERRLA, EOMI, Mouth Mucous membr. moist/[place] Neck: Normal Range of Motion Lungs: Clear to auscultation, Normal air movement, Speaks full Sentences Cardiovascular: Regular rate Abdomen: Normal bowel sounds, Soft. No: No tenderness (MIld tender diffusely.) Integumentary: Normal Extremities: No edema Neurological: Normal gait, Normal speech, Strength Equal Bilat Psych/Mental Status: Mental status NL, Mood NL, Appropriate Affect, Intact Judgment Assessment/Plan - Assessment/Plan (1) Diverticulitis large intestine Status: Acute Current Visit: Yes Qualifiers: Diverticulitis bleeding: without bleeding Diverticulitis complication: without perforation or abscess Qualified Code(s): K57.32 - Diverticulitis of large intestine without perforation or abscess without bleeding Plan: Admit for IV flagyl and cipro. CT concerning for mass vs. retained stool. Plan to repeat CT with contrast. IF still concerning for mass will likely transfer for colonoscopy and work up. If mass ruled out will start trying to clean bowels out. CT also shows B infiltrates but patient does not have symptoms of pneumonia. Radiologist says it could also be fibrosis. Patient was admitted with pneumonia in February 2017. (2) Liver lesion Status: Acute Current Visit: Yes Plan: Alkaline phosphatase elevating more and more since 01/28. Certainly raises concern for cancerous mass in liver. Repeat CT with contrast. (3) Renal mass Status: Acute Current Visit: Yes Plan: Certainly could be a cyst but will repeat CT with contrast to try to verify. (4) Essential hypertension Status: Chronic Current Visit: No Plan: Stable. Watch. (5) CAD (coronary artery disease) Status: Chronic Current Visit: No Qualifiers: Coronary Disease-Associated Artery/Lesion type: [place] artery [place] vs. transplanted heart: [place] heart Associated angina: without angina Qualified Code(s): I25.10 - Atherosclerotic heart disease of [place] coronary artery without angina pectoris Plan: Appears Stable. VTE Assessment - RISK FACTOR SCORE VTE RISK FACTOR SCORES: AGE OVER 60 YEARS, ACUTE INFECTION OTHER THEN SEPSIS - RISK VTE MODERATE RISK: SCORE OF 2 (RISK PROXIMAL DVT 2-4%) PROPHYAXIS NEEDED
[2017-04-20] MEDS ORDERED: CIPROFLOXACIN/D5W 200 ML IV ONE (09:00)
[2017-04-20] MEDS: CIPROFLOXACIN/D5W 400 MG in PREMIX BAG 1 BAG IV SCH (09:07)
[2017-04-20 09:17] LABS: APPEARANCE,URINE Clear (CLEAR); COLOR,URINE Yellow (YELLOW); OCCULT BLOOD,URINE Negative (NEGATIVE); PH URINE 6.5 (5.0 - 8.0); UROBILINOGEN URINE 0.2 Eu (0.2-1.0)
[2017-04-20] MEDS: ENOXAPARIN SODIUM 30 MG/0.3 ML DISP.SYRIN SQ SCH (10:52)
[2017-04-20] MEDS: CARVEDILOL 6.25 MG TABLET PO SCH ×2 (10:53→18:32)
[2017-04-20] MEDS: DULoxetine HCL 30 MG CAPSULE.DR PO SCH (10:53)
[2017-04-20] MEDS: CHOLECALCIFEROL 1,000 UNIT TABLET PO SCH ×2 (10:54→19:57)
[2017-04-20] MEDS: SITAGLIPTIN PHOSPHATE 50 MG TABLET PO SCH (10:55)
[2017-04-20] MEDS: FUROSEMIDE 40 MG TABLET PO SCH (10:55)
[2017-04-20] MEDS: LISINOPRIL 5 MG TABLET PO SCH (10:57)
[2017-04-20] MEDS: TICAGRELOR 90 MG PO SCH ×2 (10:59→20:01)
[2017-04-20] MEDS: ASPIRIN 81 MG CHEW TAB PO SCH (11:07)
--- NOTE | 2017-04-20 12:52 | Diagnostic Imaging Report ---
[facility] [id number] [facility].[address] [address] Report Submission Date: Apr 20, 2017 10:27:37 AM CDT Patient Study Name: STEPHIE YBARRA Date: Apr 20, 2017 8:21:52 AM CDT Modality Type: CT\SR Gender: F Description: CT ABD & PELVIS W/ CON : 30 Institution: Physician: [facility] Examination: CT Abdomen/pelvis History: Abdominal discomfort Comparison exams: 19 April 2017 Technique: CT Abdomen/pelvis with IV protocol. Findings: Liver demonstrates diffuse low attenuation. Regions of presumed fatty sparing within the inferior posterior margin of the right hepatic lobe. Low density structure at the junction of the right and left hepatic lobe measuring 2.3 cm. At the left hepatic lobe tip is a region of increased intensity with low density region centrally. Gallbladder mildly prominent with gallstones layering within the dependent margin. No adjacent inflammatory changes. Spleen with central granuloma. Low density region along the anterior margin. Atrophy of the left kidney. Right kidney without cortical irregularity. Ureters, as visualized, described a normal course through the abdomen and pelvis. No obvious calcification. Pancreas, as visualized, demonstrates a low density area within the mid aspect measuring 2.4 cm. Possible no confluence between the pancreas and the adjacent margin of the abdominal aorta. Adrenal glands not enlarged. Abdominal aorta demonstrates peripheral described disease no aneurysmal dilation. Significant stool throughout the entire large bowel limiting sensitivity. Thickening of the sigmoid colon mucosa with numerous diverticula. Mild stranding of the perirectal fat. Uterus deviates to the right. Small amount of fluid adjacent to the right adnexal structures. No abnormal small bowel dilation. Small umbilical hernia with fat involvement: no bowel involvement Degenerative the osseous structures. Lung bases demonstrate dependent scarring and atelectasis. Impression: Mid pancreatic low density region with adjacent notable enlargement suspicious for pancreatic mass. Dedicated imaging recommended. Fatty liver. Regions of fatty sparing and cystic formation. Possible hemangioma involving the left hepatic lobe tip. Consider dedicated imaging to clarify. Mildly prominent gallbladder with gallstones. Ultrasound gallbladder would better evaluate for possible inflammation or but bile duct enlargement. Significant stool throughout the large bowel associated with sigmoid diverticuli and wall thickening. Component of diverticulitis or wall lesion/ mass cannot be excluded. Correlate with patient symptoms. Colonoscopy recommended to better evaluate the large bowel mucosa. Splenic low density region: Splenic mass versus decreased perfusion. Left renal atrophy. Small umbilical hernia. Fat involvement, no bowel involvement. Electronically signed on Apr 20, 2017 10:27:37 AM CDT by: Alf HWANG
[2017-04-20] MEDS: SALINE FLUSH 10 ML DISP.SYRIN IV SCH ×2 (17:03→19:57)
[2017-04-20] MEDS ORDERED: ACETAMINOPHEN 500 MG TABLET PO PRN (21:08)
[2017-04-20] MEDS ORDERED: ACETAMINOPHEN 500 MG TABLET ONE (21:08)
[2017-04-21] MEDS ORDERED: metroNIDAZOLE/SODIUM CHLORIDE 100 ML IV ONE ×3 (00:14→12:32)
[2017-04-21] MEDS: metroNIDAZOLE/SODIUM CHLORIDE 500 MG in PREMIX BAG 1 BAG IV SCH ×3 (00:21→12:33)
[2017-04-21] MEDS ORDERED: CIPROFLOXACIN/D5W 200 ML IV ONE (05:25)
[2017-04-21] MEDS: ENOXAPARIN SODIUM 30 MG/0.3 ML DISP.SYRIN SQ SCH (05:40)
[2017-04-21] MEDS: CIPROFLOXACIN/D5W 400 MG in PREMIX BAG 1 BAG IV SCH (06:25)
[2017-04-21] MEDS: CARVEDILOL 6.25 MG TABLET PO SCH (08:09)
[2017-04-21] MEDS: DULoxetine HCL 30 MG CAPSULE.DR PO SCH (08:10)
[2017-04-21] MEDS: ASPIRIN 81 MG CHEW TAB PO SCH (08:10)
[2017-04-21] MEDS: SITAGLIPTIN PHOSPHATE 50 MG TABLET PO SCH (08:11)
[2017-04-21] MEDS: SALINE FLUSH 10 ML DISP.SYRIN IV SCH (08:11)
[2017-04-21] MEDS: CHOLECALCIFEROL 1,000 UNIT TABLET PO SCH (08:12)
[2017-04-21] MEDS: FUROSEMIDE 40 MG TABLET PO SCH (08:12)
[2017-04-21] MEDS: TICAGRELOR 90 MG PO SCH (08:14)
[2017-04-21] MEDS: LISINOPRIL 5 MG TABLET PO SCH (08:14)
[2017-04-21] MEDS ORDERED: TICAGRELOR 90 MG PO SCH (09:00)
[2017-04-21 09:49] LABS: BASOPHILS % 0.6 (0.0-1.5); EOSINOPHILS % 3.2 % (0.0-6.8); MEAN CORPUSCULAR HEMOGLOBIN 29.6 pg (28.0-34.0); MEAN CORPUSCULAR VOLUME 91.2 fl (80.0-100.0); MONOCYTES % 5.1 % (0.0-11.0); NEUTROPHILS # 6.2 # k/uL (1.4-7.7)
[2017-04-21 10:12] LABS: eGFR (African) > 60; eGFR (Non-African) > 60
[2017-04-21] MEDS ORDERED: 0.9 % SODIUM CHLORIDE 1,000 ML IV ONE (10:30)
[2017-04-21] MEDS ORDERED: 0.9 % SODIUM CHLORIDE 500 ML IV ONE (10:33)
[2017-04-21 16:03] VITALS: BP 120/66
--- NOTE | 2017-06-03 13:38 | Discharge Summary ---
Discharge Summary - Discharge Sumary History of Present Illness: Patient presented to ER with severe abdominal cramping for 3 days. Noted her BM 's had become small and round "like juanjose". [place] she was constipated. Uncontrasted CT in the ER showed large fecal burden vs diverticulitis as well as other abnormalities in the colon. The ER physician felt due to her age, elevated WBC, pain and CT findings she should be admitted for IV antibiotics. Home Medications: Ambulatory Orders Medication Instructions Recorded Aspirin [Kadie] 81 mg PO DAILY 03/01/17 Carvedilol [Coreg] 6.25 mg PO BS 03/01/17 Cholecalciferol [Vitamin D-3] 1,000 unit PO BID 03/01/17 Ticagrelor [Brilinta] 90 mg PO BID 03/01/17 HYDROcodone /APAP 5/325 [[place] 1 each PO Q4 PRN #20 tab 03/22/17 5/325] Ciprofloxacin HCl [Cipro] 500 mg PO BID #16 tablet 04/21/17 Metronidazole 500 mg PO TID #24 tablet 04/21/17 0.9 % Sodium Chloride [Normal 100 ml IV .Q10H iv.soln 04/27/17 Saline] HYDROmorphone HCL/PF [Dilaudid] 1 mg IVP Q4 PRN disp.syrin 04/27/17 Potassium Chloride [Klor-Con] 20 meq IV .Q10H vial 04/27/17 Consultations this Visit: None Procedures this Visit: Other (CT scan of abd) Allergies/Adverse Reactions: Allergies Allergy/AdvReac Type Severity Reaction Status Date / Time Penicillins Allergy Verified 04/19/17 20:16 Sulfa (Sulfonamide Allergy Verified 04/19/17 20:16 Antibiotics) Discharge Summary: Patient was felt to be having some constipation and early diverticulitis as found on CT scan. Patient was admitted and started on IV antibiotics of Cipro and Metronidazole. By the next day her WBC count had improved from 13,000 to 8, 300. She states that she was feeling much better. Abdominal pain was improved. She remained afebrile with no chills. Patient was given medication for constipation and had several BM, no blood in BM noted. On the day of discharge patient was feeling better and wanted to be discharged home. Another CT scan with contrast was done per radialogy, and showed some bowel wall thickening felt to be related to diverticulitis. Since patient was improved it was decided to discharge patient and follow-up on an outpatient basis. - Final Diagnosis (1) Diverticulitis large intestine Problems: Will continue with antibiotics on an outpatient basis. May need to get colonoscopy in the future to further evaluate colon. (2) Constipation Problems: Patient advised of stool regimine to help with constipation.
== END 2017-04-21 17:15 | disposition home or self-care (01) ==
LOC: ED 19:40 → SOUTH 23:45
PROVIDERS: ADMIT Family Medicine; ATTEND Family Medicine
DX: K57.32 Diverticulitis of large intestine without perforation or abscess without bleeding (principal); K59.00 Constipation, unspecified
CPT/HCPCS: 36415; 74022; 74176; 74177; 80053; 81002; 85025; G0378; J0744; J3490; J7030; J7060; Q9966; 96374; 96375; 96376; 99283; 99284; A9698; S1016

== ENCOUNTER 2017-04-25 14:09 | Observation (INO) | payer MEDICARE, OTHER ==
--- NOTE | 2017-04-25 14:29 | ED Physician Documentation ---
Abdominal Pain - HISTORIAN Historian: patient - HPI Stated Complaint: "Constipation" Chief Complaint: Abdominal Pain Additonal Information: history of diverticulitis (she states she was told she had this last week Mon) She states she was constipation since then She states she has not had a bowel movement over one week ago She states she has tried several OTC meds with no results SHe feels very weak She uses a walker daily She is on meds for the diverticulitis She notes she is "just trickling" with her urine and she states she has a specialist appt She also notes they found a small mass on her pancreas She states she was told last month she had diabetes Onset: hours (24) Duration: constant, worse Timing: still present Context: denies: out of country travel, bad food, recent trauma Severity: severe Quality: aching, dull Associated Symptoms: chills, nausea. denies: fever, vomiting, coffee ground emesis, bloody emesis, diarrhea, bloody stools, grossly bloody stools, mucous, back pain Exacerbated by: nothing Relieved by: nothing - ROS CONST: no problems GI/: other (trickling urine ) CVS/RESP: none MS/SKIN/LYMPH: none NEURO/PSYCH: none - SOCIAL HX Smoking History: non-smoker Alcohol Use: none Drug Use: none - FAMILY HX Family History: none - PAST HX Past History: other ([place], Diabetes, mass on pancreas) Other History: diabetes Type 2, other ([place] ) Surgeries/Procedures: other (back surgery, both knees, appendix, tonsils, 4 stents and 2 balloons ) Immunizations: referred to PCP Home Medications: Ambulatory Orders Medication Instructions Recorded Aspirin [Kadie] 81 mg PO DAILY 03/01/17 Carvedilol [Coreg] 6.25 mg PO BS 03/01/17 Cholecalciferol [Vitamin D-3] 1,000 unit PO BID 03/01/17 Ticagrelor [Brilinta] 90 mg PO BID 03/01/17 HYDROcodone /APAP 5/325 [[place] 1 each PO Q4 PRN #20 tab 03/22/17 5/325] Ciprofloxacin HCl [Cipro] 500 mg PO BID #16 tablet 04/21/17 Metronidazole 500 mg PO TID #24 tablet 04/21/17 Allergies/Adverse Reactions: Allergies Allergy/AdvReac Type Severity Reaction Status Date / Time Penicillins Allergy Verified 04/19/17 20:16 Sulfa (Sulfonamide Allergy Verified 04/19/17 20:16 Antibiotics) - VITAL SIGNS Vital Signs: Vital Signs Temp Pulse Resp BP Pulse Ox 78 18 122/62 96 04/25/17 14:10 04/25/17 14:10 04/25/17 14:10 04/25/17 14:10 - REVIEWED ASSESSMENTS Nursing Assessment Reviewed: Yes Vitals Reviewed: Yes ED Results Lab/Radiology - Lab Results Lab Results: Lab Results 04/25/17 04/25/17 04/25/17 15:40 14:55 14:55 WBC 8.90 K/ul K/ul (4.00-12.00) RBC 3.93 M/ul M/ul (3.90-5.20) Hgb 12.0 g/dL g/dL (12.0-16.0) Hct 36.2 % % (34.5-46.5) MCV 91.9 fl fl (80.0-100.0) MCH 30.5 pg pg (28.0-34.0) MCHC 33.1 g/dL g/dL (30.0-36.0) RDW 14.4 % H % (11.3-14.3) Plt Count 223 K/mm3 K/mm3 (130-400) Neut % (Auto) 76.5 % % (39.0-79.0) Lymph % (Auto) 15.0 % L % (16.0-50.0) [place] % (Auto) 4.2 % % (0.0-11.0) Eos % (Auto) 2.7 % % (0.0-6.8) Baso % (Auto) 0.3 (0.0-1.5) Neut # (Auto) 6.8 # k/uL # k/uL (1.4-7.7) Lymph # (Auto) 1.3 # k/uL # k/uL (0.6-4.0) [place] # (Auto) 0.4 # k/uL # k/uL (0.0-0.9) Eos # (Auto) 0.2 # k/uL # k/uL (0.0-0.6) Baso # (Auto) 0.0 # k/uL # k/uL (0.0-0.5) Reactive Lymphs % 1.2 % % (0.0-5.0) Reactive Lymphs # 0.1 # k/uL # k/uL (0.0-0.8) Sodium 129 mmol/L L mmol/L (136-145) Potassium 3.0 mmol/L L mmol/L (3.5-5.0) Chloride 91 mmol/L L mmol/L (98-110) Carbon Dioxide 31 mmol/L mmol/L (20-32) BUN 16 mg/dL mg/dL (10-26) Creatinine 0.9 mg/dL mg/dL (0.4-1.5) Estimated Creat Clear 77 Est GFR ( Amer) > 60 (60 - ) Est GFR (Non-Af Amer) > 60 (60 - ) Glucose 198 mg/dL H mg/dL (70-99) Calcium 9.2 mg/dL mg/dL (8.5-10.5) Urine Color Yellow (YELLOW) Urine Appearance Slightly cloudy (CLEAR) Urine pH 6.0 (5.0 - 8.0) Ur Specific [place] 1.010 (1.010-1.030) Urine Protein Negative mg/dL mg/dL (NEGATIVE) Urine Ketones Negative mg/dL mg/dL (NEGATIVE) Urine Occult Blood Trace-intact (NEGATIVE) Urine Nitrite Negative (NEGATIVE) Urine Bilirubin Negative (NEGATIVE) Urine Urobilinogen 0.2 Eu Eu (0.2-1.0) Ur Leukocyte Esterase Trace (NEGATIVE) Urine RBC 2-5 H (0-2 HPF) Urine WBC 5-10 H (0-5 HPF) Ur Squamous Epith Cells Many H (NEG-FEW) Urine Bacteria Moderate H (NEGATIVE) Urine Glucose Negative mg/dL mg/dL (NEGATIVE) - Orders Orders: ED Orders Category Date Time Status IV Started NOW Care 04/25/17 14:46 Active ABD SERIES [ABD SERIES PA CHEST] [RAD] Stat Exams 04/25/17 Ordered BMP [BMP] Routine Lab 04/25/17 14:55 Completed CBC/PLATELET/DIFF Routine Lab 04/25/17 14:55 Completed UA W MICRO [UA W/MICRO IF INDICATED] Routine Lab 04/25/17 15:40 Completed URINE CULTURE Routine Lab 04/25/17 15:40 Received 0.9 % Sodium Chloride [Normal Saline] 1,000 ml Med 04/25/17 15:00 Ordered IV Q12H Abdominal Pain Physical Exam - Physical Exam General Appearance: no acute distress NECK: normal inspection RESPIRATORY: no resp distress, chest non-tender, breath sounds normal CVS: reg rate & rhythm, heart sounds normal, equal pulses, no murmur ABDOMEN: soft, decreased BS, distended, guarding. No: McBurney's point tenderne , Rovsing's sign EXTREMITIES: non-tender, normal range of motion NEURO: oriented X3 Vital Signs: Vital Signs Temp Pulse Resp BP Pulse Ox 78 18 122/62 96 04/25/17 14:10 04/25/17 14:10 04/25/17 14:10 04/25/17 14:10 Discharge Clincal Impression: Hyponatremia Home Medications: Ambulatory Orders Aspirin [Kadie] 81 mg PO DAILY 03/01/17 Carvedilol [Coreg] 6.25 mg PO BS 03/01/17 Cholecalciferol [Vitamin D-3] 1,000 unit PO BID 03/01/17 Ticagrelor [Brilinta] 90 mg PO BID 03/01/17 HYDROcodone /APAP 5/325 [[place] 5/325] 1 each PO Q4 PRN #20 tab 03/22/17 Ciprofloxacin HCl [Cipro] 500 mg PO BID #16 tablet 04/21/17 Metronidazole 500 mg PO TID #24 tablet 04/21/17 Condition: Stable Disposition: ADMITTED INPATIENT Decision to Admit: [id number] Date of Decison to Admit: 04/25/17 Decision Time: 16:03
[2017-04-25 15:04] LABS: BASOPHILS % 0.3 (0.0-1.5); EOSINOPHILS % 2.7 % (0.0-6.8); MEAN CORPUSCULAR HEMOGLOBIN 30.5 pg (28.0-34.0); MEAN CORPUSCULAR VOLUME 91.9 fl (80.0-100.0); MONOCYTES % 4.2 % (0.0-11.0); NEUTROPHILS # 6.8 # k/uL (1.4-7.7)
[2017-04-25 15:15] LABS: eGFR (African) > 60; eGFR (Non-African) > 60
[2017-04-25] MEDS: 0.9 % SODIUM CHLORIDE 1,000 ML IV SCH (15:35)
[2017-04-25 15:43] LABS: APPEARANCE,URINE Slightly Cloudy (CLEAR); COLOR,URINE Yellow (YELLOW); OCCULT BLOOD,URINE Trace-intact (NEGATIVE); UROBILINOGEN URINE 0.2 Eu (0.2-1.0)
--- NOTE | 2017-04-25 16:38 | Diagnostic Imaging Report ---
[facility] [address] [facility] [address], [place]. [address] Report Submission Date: Apr 25, 2017 3:55:11 PM CDT Patient Study Name: STEPHIE YBARRA Date: Apr 25, 2017 3:11:05 PM CDT Modality Type: CR Gender: F Description: CHEST,ABDOMEN : 30 Institution: [facility] Physician: RAUDEL LANGE Examination: Obstruction series History: Abdominal discomfort Findings: 4 views obtained of the chest and abdomen. Single view the chest demonstrates normal cardiac size. Mild tortuosity of the thoracic aorta with vascular calcifications involving aortic arch. Chronic interstitial changes with mild haziness involving the right inferior hilar region. No abnormal dilation of the large or small bowel. Air and stool throughout the large bowel. Residual contrast from recent CT scan. Osseous structures demonstrate degenerative changes. Impression: Mild lung base parenchymal scarring. No effusion. No obstruction by film sensitivity. Correlate with recent CT findings. Electronically signed on Apr 25, 2017 3:55:11 PM CDT by: Alf HWANG
[2017-04-25] MEDS ORDERED: ENOXAPARIN SODIUM 30 MG/0.3 ML DISP.SYRIN SQ SCH (17:00)
[2017-04-25 17:02] VITALS: BMI 26.7
[2017-04-25] MEDS ORDERED: metroNIDAZOLE/SODIUM CHLORIDE 100 ML IV ONE ×2 (18:27→21:09)
[2017-04-25] MEDS: SIMVASTATIN 20 MG TABLET PO SCH ×2 (18:31→21:11)
[2017-04-25] MEDS: CARVEDILOL 6.25 MG TABLET PO SCH (18:31)
[2017-04-25] MEDS: DULoxetine HCL 30 MG CAPSULE.DR PO SCH ×2 (18:31→21:11)
[2017-04-25] MEDS: metroNIDAZOLE/SODIUM CHLORIDE 500 MG in PREMIX BAG 1 BAG IV SCH (18:32)
[2017-04-25] MEDS: KETOROLAC TROMETHAMINE 30 MG/1ML VIAL IVP PRN (19:50)
[2017-04-25] MEDS: CIPROFLOXACIN HCL 500 MG TABLET PO SCH (21:11)
[2017-04-25] MEDS: CHOLECALCIFEROL 1,000 UNIT TABLET PO SCH (21:11)
[2017-04-26] MEDS: metroNIDAZOLE/SODIUM CHLORIDE 500 MG in PREMIX BAG 1 BAG IV SCH ×3 (00:15→16:39)
[2017-04-26] MEDS: KETOROLAC TROMETHAMINE 30 MG/1ML VIAL IVP PRN ×2 (02:00→18:05)
[2017-04-26] MEDS: 0.9 % SODIUM CHLORIDE 1,000 ML IV SCH ×3 (05:20→22:30)
[2017-04-26 07:26] LABS: eGFR (African) > 60; eGFR (Non-African) > 60
[2017-04-26] MEDS ORDERED: metroNIDAZOLE/SODIUM CHLORIDE 100 ML IV ONE ×2 (08:17→16:15)
[2017-04-26] MEDS ORDERED: SALINE FLUSH 10 ML DISP.SYRIN IVF ONE ×2 (08:18→16:15)
[2017-04-26] MEDS: CARVEDILOL 6.25 MG TABLET PO SCH ×2 (08:32→18:16)
[2017-04-26] MEDS: CIPROFLOXACIN HCL 500 MG TABLET PO SCH ×2 (08:33→21:00)
[2017-04-26] MEDS: FUROSEMIDE 40 MG TABLET PO SCH (08:34)
[2017-04-26] MEDS: SITAGLIPTIN PHOSPHATE 50 MG TABLET PO SCH (08:34)
[2017-04-26] MEDS: LISINOPRIL 5 MG TABLET PO SCH (08:35)
[2017-04-26] MEDS: CHOLECALCIFEROL 1,000 UNIT TABLET PO SCH ×2 (08:35→21:00)
[2017-04-26 13:43] LABS: BILIRUBIN,DIRECT 0.2 mg/dL (0.0-0.4)
[2017-04-26] MEDS: DULoxetine HCL 30 MG CAPSULE.DR PO SCH (18:18)
[2017-04-26] MEDS ORDERED: SIMVASTATIN 40 MG TABLET PO SCH (21:00)
--- NOTE | 2017-04-26 21:27 | Diagnostic Imaging Report ---
[facility] [address] [facility].[address] [address] Report Submission Date: Apr 26, 2017 4:57:24 PM CDT Patient Study Name: STEPHIE YBARRA Date: Apr 26, 2017 3:51:33 PM CDT Modality Type: CT\SR Gender: F Description: CT ABD & PELVIS W/ CON : 30 Institution: [facility] Physician: [facility]MED SURG Examination: CT Abdomen/pelvis History: Generalized abdominal discomfort Comparison exams: 19 April 2017 and 20 April 2017 Technique: CT Abdomen/pelvis with IV protocol. Findings: Findings: Liver demonstrates diffuse low attenuation. Regions of presumed fatty sparing within the inferior posterior margin of the right hepatic lobe. Low density structure at the junction of the right and left hepatic lobe measuring 2.3 cm. At the left hepatic lobe tip is a region of increased intensity with low density region centrally. Gallbladder mildly prominent with gallstones layering within the dependent margin. No adjacent inflammatory changes. Spleen with central granuloma. Low density region along the anterior margin. Atrophy of the left kidney. Right kidney without cortical irregularity. Ureters, as visualized, described a normal course through the abdomen and pelvis. No obvious calcification. Pancreas, as visualized, again demonstrates a low density area within the mid aspect measuring 2.5 cm. Possible bk confluence between the pancreas and the adjacent margin of the abdominal aorta. Adrenal glands not enlarged. Abdominal aorta demonstrates peripheral atherosclerotic disease - no aneurysmal dilation. Cardiac silhouette not enlarged. Mild pericardial thickening. Again identified is significant stool throughout the entire large bowel limiting sensitivity. Amount of stool appears to have increased in degree since the 20 April 2017 examination. Significant thickening of the sigmoid colon mucosa with numerous diverticula. Degree of mucosal thickening now appears to involve the splenic flexure, descending colon, and rectosigmoid region to a larger degree than the previous examination. New from previous examination is a degree of abdominal free fluid extending over the liver/spleen and within the lower pelvis around the sigmoid colon. No peripherally enhancing fluid collection to suggest abscess at this time. Mild stranding of the perirectal fat. Uterus deviates to the right. No abnormal small bowel dilation. Small umbilical hernia with fat involvement: no bowel involvement Degenerative the osseous structures. Lung bases demonstrate dependent scarring and atelectasis. Impression: Significant stool throughout the large bowel associated with sigmoid diverticuli and wall thickening. Amount of stool and degree of wall inflammation has increased since the previous examination. Development of abdominal ascites around the liver, spleen and sigmoid colon. Findings suggest worsening diverticulitis/colitis. No overt abscess at this time. Increasing constipation. Correlate with patient symptoms. Colonoscopy recommended to better evaluate the large bowel mucosa. Mid pancreatic low density region with adjacent bk enlargement suspicious for pancreatic mass. Dedicated imaging recommended. Fatty liver. Regions of fatty sparing and cystic formation. Possible hemangioma involving the left hepatic lobe tip. Consider dedicated imaging to clarify. Mildly prominent gallbladder with gallstones. Ultrasound gallbladder would better evaluate for possible inflammation or bile duct enlargement. Splenic low density region: Splenic mass versus decreased perfusion. Left renal atrophy. Small umbilical hernia. Fat involvement, no bowel involvement. Electronically signed on Apr 26, 2017 4:57:24 PM CDT by: Alf HWANG
[2017-04-27] MEDS ORDERED: metroNIDAZOLE/SODIUM CHLORIDE 100 ML IV ONE ×3 (00:27→12:19)
[2017-04-27] MEDS: metroNIDAZOLE/SODIUM CHLORIDE 500 MG in PREMIX BAG 1 BAG IV SCH ×3 (00:31→16:36)
[2017-04-27] MEDS ORDERED: SALINE FLUSH 10 ML DISP.SYRIN IVF ONE ×3 (00:33→21:03)
[2017-04-27] MEDS: KETOROLAC TROMETHAMINE 30 MG/1ML VIAL IVP PRN (00:36)
[2017-04-27] MEDS: CIPROFLOXACIN HCL 500 MG TABLET PO SCH (08:06)
[2017-04-27] MEDS: SITAGLIPTIN PHOSPHATE 50 MG TABLET PO SCH (08:07)
[2017-04-27] MEDS: FUROSEMIDE 40 MG TABLET PO SCH (08:07)
[2017-04-27] MEDS: LISINOPRIL 5 MG TABLET PO SCH (08:07)
[2017-04-27] MEDS: CHOLECALCIFEROL 1,000 UNIT TABLET PO SCH (08:08)
[2017-04-27] MEDS: CARVEDILOL 6.25 MG TABLET PO SCH ×2 (08:09→18:33)
[2017-04-27] MEDS: 0.9 % SODIUM CHLORIDE 1,000 ML IV SCH (13:17)
[2017-04-27] MEDS ORDERED: HYDROmorphone HCL/PF 1 MG/ML DISP.SYRIN IVP PRN (16:34)
[2017-04-27 17:08] LABS: BASOPHILS % 0.7 (0.0-1.5); EOSINOPHILS % 1.4 % (0.0-6.8); MEAN CORPUSCULAR HEMOGLOBIN 30.3 pg (28.0-34.0); MEAN CORPUSCULAR VOLUME 90.1 fl (80.0-100.0); MONOCYTES % 4.6 % (0.0-11.0); NEUTROPHILS # 15.6 # k/uL (1.4-7.7)
[2017-04-27 17:14] LABS: eGFR (African) > 60; eGFR (Non-African) > 60
--- NOTE | 2017-04-27 17:53 | History and Physical Report ---
History of Present Illnes - History of Present Illness Reason for Visit: abd pain History of Present Illness: 86 yo white female who recently has started to have some mild diffuse abd pain and states that she has not been passing much stool. This has been going on for about 7-10 days. Patient has a history of diverticuli. A CT scan done last week showed some colon wall thickening and fat stranding consistent with possible diverticulitis or colitis. It also showed a hypodense area in the pancreas with some surrounding enlarged lympnodes. She has been scheduled for an endoscopic US to further evaluate the area. She was started on Flagyl and cipro orally. She has continued to have some mild abd discomfort and felt that she was not stooling as she should be. No nausea, vomiting, hematchezia or melena noted. Patient was seen in the ED two days ago. Flat and upright abd films were felt to be normal. Patient was noted to have some diffuse abd tenderness. She had some mild hyponatremia and was admitted to observation care. Has continued to have some discomfort and a CT scan was done yesterday which showed some progression of the thickening to the bowel wall, now appeared to involve most of the descending colon. Patient was admitted to acute care. Dr Huerta was consulted by phone and it was felt that she might have a ischemic bowel problem. With WBC normal and mild pain with no nausea or vomiting, it was elected to place her on clear liquids, continue IV antibiotics and perform a colonoscopy on her on Monday. - Past Medical History Cardiac: CAD, CHF, HTN, AR, Hyperlipidemia Pulmonary: Pneumonia (resolved) Gastrointestinal: Diverticulosis. denies: Inflam bowel disease, Irritable bowel disease - Past Surgical History Past Surgical History: Appendectomy, Total Knee Replacement (2006, 2011), Tonsillectomy, Other (carotid endarterectomy 1995, cervical discectomy 2004, PCI w stenting 2006, PCI w/o stenting 1995, ,) - Past Family History Mother Family History: Father Family History: - Past Social History Smoke: No, Quit (1954) Alcohol: None Drugs: None Lives: With Family () - Health Maintenance Health Maintenance: Influenza Vaccine, Pneumococcal Vaccine Influenza Vaccine: No Pneumonia Vaccine: Yes (pneumo 23) Resuscitation Status: Resusciation Status Resuscitation Status Do Not Resuscitate - Unable to Obtain History Unable to Obtain: No Review of Systems - Review of Systems Constitutional: negative: Fever, Chills, Sweats, Weakness Eyes: negative: pain, redness ENT: negative: Ear Pain, Ear Discharge, Nose Pain, Nose Discharge, Nose Congestion, Throat Pain Respiratory: negative: Cough, Dry, Shortness of Breath, Hemoptysis, SOB with Excertion, Pleuritic Pain, Sputum, Wheezing Cardiovascular: negative: Chest Pain, Palpitations, Edema Gastrointestinal: Abdominal Pain. negative: Nausea, Vomiting, Diarrhea, Constipation, Melena, Hematochezia Genitourinary: Other (does not feel that she is urinating as much as she should be, has seen urlogist and has bben scheduled for urodynamic studies. ). negative: Dysuria, Frequency, Incontinence Musculoskeletal: negative: Neck Pain, Shoulder Pain Skin: Rash Neurological: negative: Weakness, Numbness, Change in Speech - Medications/Allergies Allergies/Adverse Reactions: Allergies Allergy/AdvReac Type Severity Reaction Status Date / Time Penicillins Allergy Verified 04/19/17 20:16 Sulfa (Sulfonamide Allergy Verified 04/19/17 20:16 Antibiotics) Current Inpatient Medications: Current Inpatient Medications Carvedilol (Coreg) 6.25 mg PO BS [facility] Last Admin: 04/27/17 08:09 Dose: 6.25 mg Duloxetine HCl (Cymbalta) 60 mg PO HS [facility] Last Admin: 04/26/17 18:18 Dose: 60 mg Hydromorphone HCl (Dilaudid) 1 mg IVP Q4 PRN PRN Reason: PAIN Metronidazole/Sodium Chloride (500 mg/ PREMIX BAG) 100 mls @ 100 mls/hr IV Q8H [facility] Last Admin: 04/27/17 16:36 Dose: 100 mls/hr Ciprofloxacin/Dextrose 400 mg/ (PREMIX BAG) 200 mls @ 200 mls/hr IV BID [facility] Potassium Chloride 20 meq/ (Sodium Chloride) 1,010 mls @ 100 mls/hr IV .Q10H [facility] Ketorolac Tromethamine (Toradol) 30 mg IVP Q6 PRN PRN Reason: Abdominal Pain Stop: 04/30/17 16:22 Last Admin: 04/27/17 00:36 Dose: 30 mg Lisinopril (Prinivil) 5 mg PO DAILY [facility] Last Admin: 04/27/17 08:07 Dose: 5 mg Polyethylene Glycol/Electrolytes (Golytely Solution) 4,000 ml PO 1T ONE Stop: 04/30/17 12:01 Exam - Exam Vital Signs: Vital Signs (72 hours) 04/27/17 04/27/17 10:00 14:00 Temperature 97.5 F L 97.8 F Pulse Rate [ 59 L 83 Pulse ox] Respiratory 20 22 Rate Blood Pressure 132/77 106/51 [Left Arm] O2 Sat by Pulse 98 92 Oximetry General: Alert, Oriented to Person, Oriented to Place, Oriented to Time, Cooperative HEENT: Atraumatic, PERRLA, Mouth Mucous membr. moist/[place], Nose Mucous membr. moist/[place], Decreased Hearing Acuity Neck: Normal Range of Motion. No: Stridor, Lymphadenopathy Carotids: WNL Thyroid: WNL Lungs: Clear to auscultation, Normal air movement, Speaks full Sentences. No: Respiratory Distress, Wheezes, Rales, Rhonchi Cardiovascular: Regular rate, Normal S1, Normal S2, No murmurs. No: Gallops, Rubs Abdomen: Normal bowel sounds, Soft, No hepatospenomegaly, No masses, Other ( mild diffuse tenderness to the left side). No: Distended Integumentary: Normal, [place], Warm, Dry Extremities: No clubbing, No cyanosis, Other (trace edema) Neurological: Normal gait, Normal speech, Strength Equal Bilat, Normal tone, Sensation intact, Cranial nerves 3-12 NL, Reflexes 2+ Psych/Mental Status: Mental status NL, Mood NL, Appropriate Affect, Intact Judgment - Laboratory Results Laboratory Results: Laboratory Results 04/27/17 04/27/17 16:40 16:40 WBC 17.70 H RBC 4.05 Hgb 12.3 Hct 36.5 MCV 90.1 MCH 30.3 MCHC 33.7 RDW 14.6 H Plt Count 241 Neut % (Auto) 88.1 H Lymph % (Auto) 4.5 L [place] % (Auto) 4.6 Eos % (Auto) 1.4 Baso % (Auto) 0.7 Neut # (Auto) 15.6 H Lymph # (Auto) 0.8 [place] # (Auto) 0.8 Eos # (Auto) 0.2 Baso # (Auto) 0.1 Reactive Lymphs % 0.7 Reactive Lymphs # 0.1 Sodium 126 L Potassium 2.7 L Chloride 91 L Carbon Dioxide 27 BUN 18 Creatinine 1.1 Estimated Creat Clear 59 Est GFR ( Amer) > 60 Est GFR (Non-Af Amer) > 60 Glucose 177 H Calcium 8.4 L Total Bilirubin 0.4 AST 26 ALT 24 Alkaline Phosphatase 235 H Total Protein 6.1 Albumin 3.5 Assessment/Plan - Assessment/Plan (1) Colitis Status: Acute Assessment: possible ischemic bowel, will get stool for C diff,, clear liquids, plan colonoscopy on Monday. Continue with antibiotics. (2) Hyponatremia Status: Acute Assessment: Improved, will continue to monitor (3) Voiding difficulty Status: Chronic Assessment: Has had for several months, urodynamic studies ordered. Post void residula by cath was about 150 cc. Urine culture pending. (4) CAD (coronary artery disease) Status: Chronic Qualifiers: Coronary Disease-Associated Artery/Lesion type: [place] artery [place] vs. transplanted heart: [place] heart Associated angina: without angina Qualified Code(s): I25.10 - Atherosclerotic heart disease of [place] coronary artery without angina pectoris (5) CHF (congestive heart failure) Status: Chronic Qualifiers: Congestive heart failure chronicity: chronic Comment: stable on home meds VTE Assessment - RISK FACTOR SCORE VTE RISK FACTOR SCORES: AGE OVER 60 YEARS, ACUTE INFECTION OTHER THEN SEPSIS, ANTICIPATED BED CONFINEMENT OR IMMOBILIZATION > 24 HOURS - RISK VTE HIGH RISK: SCORE OF 3-4 (RISK PROXIMAL DVT 4-8%) PROPHYLAXIS NEEDED
[2017-04-27] MEDS ORDERED: 0.9 % SODIUM CHLORIDE 1,000 ML with POTASSIUM CHLORIDE 20 MEQ IV SCH ×2 (18:00)
--- NOTE | 2017-04-27 18:17 | Inpatient Progress Note ---
Subjective - Required Recertification Statement I anticipate X number of days because-include discharge plan: 1 day OBSERVATION CARE - Review of Systems Subjective: Patient states that she still has not had a good BM. No nausea or vomiting noted. Still having some vague mild mid abdominal pain. Appetite poor. General: Denies: Chills Cardiovascular: Denies: Chest Pain Gastrointestinal: Abdominal Pain. Denies: Nausea, Vomiting, Diarrhea, Constipation, Melena, Hematochezia Genitourinary: Denies: Dysuria, Frequency, Incontinence Objective - Exam Vitals and I&O: Vital Signs Temp 97.8 F 04/27/17 18:00 Pulse 83 04/27/17 18:00 Resp 22 04/27/17 18:00 BP 120/66 04/27/17 18:00 Pulse Ox 92 04/27/17 18:00 Intake & Output 04/26/17 04/27/17 04/27/17 23:59 11:59 23:59 Intake Total 100 1650 Output Total 5 Balance 100 1645 Intake: IV 100 760 Right Forearm 100 760 Oral 890 Output: Urine 5 Other: Voiding Method Toilet Toilet General: Alert, Oriented to Person, Oriented to Place, Oriented to Time, Cooperative, Mild distress Neck: Supple Lungs: Clear to auscultation, Normal air movement, Speaks full Sentences. No: Wheezes, Rales, Rhonchi Cardiovascular: Regular rate, Normal S1, Normal S2 Abdomen: Soft, No masses, Other (continues ot have some mild mid abd pain with palpation), Decreased Bowel Sounds Extremities: No clubbing, No cyanosis Skin: Normal, [place], Warm, Dry Neurological: Normal speech Psych/Mental Status: Mental status NL, Mood NL, Appropriate Affect, Intact Judgment - Results Results: Laboratory Results WBC 17.70 K/ul (4.00-12.00) H 04/27/17 16:40 RBC 4.05 M/ul (3.90-5.20) 04/27/17 16:40 Hgb 12.3 g/dL (12.0-16.0) 04/27/17 16:40 Hct 36.5 % (34.5-46.5) 04/27/17 16:40 MCV 90.1 fl (80.0-100.0) 04/27/17 16:40 MCH 30.3 pg (28.0-34.0) 04/27/17 16:40 MCHC 33.7 g/dL (30.0-36.0) 04/27/17 16:40 RDW 14.6 % (11.3-14.3) H 04/27/17 16:40 Plt Count 241 K/mm3 (130-400) 04/27/17 16:40 Neut % (Auto) 88.1 % (39.0-79.0) H 04/27/17 16:40 Lymph % (Auto) 4.5 % (16.0-50.0) L 04/27/17 16:40 [place] % (Auto) 4.6 % (0.0-11.0) 04/27/17 16:40 Eos % (Auto) 1.4 % (0.0-6.8) 04/27/17 16:40 Baso % (Auto) 0.7 (0.0-1.5) 04/27/17 16:40 Neut # (Auto) 15.6 # k/uL (1.4-7.7) H 04/27/17 16:40 Lymph # (Auto) 0.8 # k/uL (0.6-4.0) 04/27/17 16:40 [place] # (Auto) 0.8 # k/uL (0.0-0.9) 04/27/17 16:40 Eos # (Auto) 0.2 # k/uL (0.0-0.6) 04/27/17 16:40 Baso # (Auto) 0.1 # k/uL (0.0-0.5) 04/27/17 16:40 Reactive Lymphs % 0.7 % (0.0-5.0) 04/27/17 16:40 Reactive Lymphs # 0.1 # k/uL (0.0-0.8) 04/27/17 16:40 Sodium 126 mmol/L (136-145) L 04/27/17 16:40 Potassium 2.7 mmol/L (3.5-5.0) L 04/27/17 16:40 Chloride 91 mmol/L (98-110) L 04/27/17 16:40 Carbon Dioxide 27 mmol/L (20-32) 04/27/17 16:40 BUN 18 mg/dL (10-26) 04/27/17 16:40 Creatinine 1.1 mg/dL (0.4-1.5) 04/27/17 16:40 Estimated Creat Clear 59 04/27/17 16:40 Est GFR ( Amer) > 60 (60-) 04/27/17 16:40 Est GFR (Non-Af Amer) > 60 (60-) 04/27/17 16:40 Glucose 177 mg/dL (70-99) H 04/27/17 16:40 Calcium 8.4 mg/dL (8.5-10.5) L 04/27/17 16:40 Total Bilirubin 0.4 mg/dL (0.2-1.2) 04/27/17 16:40 Direct Bilirubin 0.20 mg/dL (0.0-0.4) 04/26/17 06:00 Indirect Bilirubin 0.2 mg/dL (0.0-0.8) 04/26/17 06:00 AST 26 U/L (0-41) 04/27/17 16:40 ALT 24 U/L (0-45) 04/27/17 16:40 Alkaline Phosphatase 235 U/L (46-116) H 04/27/17 16:40 Total Protein 6.1 g/dL (6.0-8.5) 04/27/17 16:40 Albumin 3.5 g/dL (3.0-5.5) 04/27/17 16:40 Urine Color Yellow (YELLOW) 04/25/17 15:40 Urine Appearance Slightly cloudy (CLEAR) 04/25/17 15:40 Urine pH 6.0 (5.0 - 8.0) 04/25/17 15:40 Ur Specific [place] 1.010 (1.010-1.030) 04/25/17 15:40 Urine Protein Negative mg/dL (NEGATIVE) 04/25/17 15:40 Urine Ketones Negative mg/dL (NEGATIVE) 04/25/17 15:40 Urine Occult Blood Trace-intact (NEGATIVE) 04/25/17 15:40 Urine Nitrite Negative (NEGATIVE) 04/25/17 15:40 Urine Bilirubin Negative (NEGATIVE) 04/25/17 15:40 Urine Urobilinogen 0.2 Eu (0.2-1.0) 04/25/17 15:40 Ur Leukocyte Esterase Trace (NEGATIVE) 04/25/17 15:40 Urine RBC 2-5 (0-2 HPF) H 04/25/17 15:40 Urine WBC 5-10 (0-5 HPF) H 04/25/17 15:40 Ur Squamous Epith Cells Many (NEG-FEW) H 04/25/17 15:40 Urine Bacteria Moderate (NEGATIVE) H 04/25/17 15:40 Urine Glucose Negative mg/dL (NEGATIVE) 04/25/17 15:40 Assessment/Plan - Assessment/Plan (1) Diverticulitis large intestine Status: Acute Current Visit: No Qualifiers: Diverticulitis bleeding: without bleeding Diverticulitis complication: without perforation or abscess Qualified Code(s): K57.32 - Diverticulitis of large intestine without perforation or abscess without bleeding Assessment: will continue with present medication. Will consider repeating CT scan. (2) Hyponatremia Status: Acute Current Visit: Yes Assessment: improved, Na 131, K 3.2 (3) Voiding difficulty Status: Chronic Current Visit: No (4) CAD (coronary artery disease) Status: Chronic Current Visit: No Qualifiers: Coronary Disease-Associated Artery/Lesion type: [place] artery [place] vs. transplanted heart: [place] heart Associated angina: without angina Qualified Code(s): I25.10 - Atherosclerotic heart disease of [place] coronary artery without angina pectoris Assessment: stable (5) CHF (congestive heart failure) Status: Chronic Current Visit: No Qualifiers: Congestive heart failure chronicity: chronic Comment: stable on home meds Assessment: stable
--- NOTE | 2017-04-27 18:29 | Discharge Summary ---
Discharge Summary - Discharge Sumary Condition at Discharge: Stable Home Medications: Ambulatory Orders Medication Instructions Recorded Aspirin [Kadie] 81 mg PO DAILY 03/01/17 Carvedilol [Coreg] 6.25 mg PO BS 03/01/17 Cholecalciferol [Vitamin D-3] 1,000 unit PO BID 03/01/17 Ticagrelor [Brilinta] 90 mg PO BID 03/01/17 HYDROcodone /APAP 5/325 [Fl[place] 1 each PO Q4 PRN #20 tab 03/22/17 5/325] Ciprofloxacin HCl [Cipro] 500 mg PO BID #16 tablet 04/21/17 Metronidazole 500 mg PO TID #24 tablet 04/21/17 Consultations this Visit: None Procedures this Visit: Other (CT scan abd/pelvis) Allergies/Adverse Reactions: Allergies Allergy/AdvReac Type Severity Reaction Status Date / Time Penicillins Allergy Verified 04/19/17 20:16 Sulfa (Sulfonamide Allergy Verified 04/19/17 20:16 Antibiotics) Patient Problems: Current Active Problems Problem Status Onset Colitis Acute Hyponatremia Acute Possible pancreatic mass Acute Discharge Summary: 86yo white female who was admitted to observation care then placed in acute after a CT scan showed progression of colon wall thickening to involve most of the descending colon. Patient was placed on clear liquids, and continued on IV antibiotics for diverticulitis/colitis. It was planned to get a colonoscopy on Monday to further evaluate. This afternoon patient began to have some increasing abd distention and pain. Patient did not have any nausea or vomiting. Repeat CBC showed her WBC to have increased to 17,700 from 8,900. Abd was becoming more tympanic. KUB showed some dilitation to the colon. It was felt that she might be developing a toxic megacolon. Patient was mildly hyponatremic on admission. This did improve but recheck on the afternoon of transferred showed with to have dropped to 126, K dropped to 2.7. Patient was transferred to [facility] for further treatment and evaluation. - Final Diagnosis (1) Colitis Problems: Possibly developing a toxic megacolon. (2) Hyponatremia Problems: On IV NS with 20meq KCl (3) Voiding difficulty Problems: chronic (4) CAD (coronary artery disease) Problems: stable (5) CHF (congestive heart failure) Problems: stable
[2017-04-27] MEDS ORDERED: HYDROmorphone HCL/PF 1 MG/ML DISP.SYRIN ONE (18:53)
--- NOTE | 2017-04-27 19:02 | Diagnostic Imaging Report ---
[facility]MED SURG [facility] [address] [facility] [address] [place] [address]. [address] Report Submission Date: Apr 27, 2017 6:56:15 PM CDT Patient Study Name: STEPHIE YBARRA Date: Apr 27, 2017 4:53:35 PM CDT Modality Type: CR Gender: F Description: ABDOMEN : 30 Institution: [facility] Physician: [facility]/MED SURG Examination: Obstruction series History: Abdominal discomfort Findings: 3 views obtained of the abdomen. Contrast within the large bowel from recent CT scan. Colon appears to be significantly dilated from the cecum through to the rectum. Scattered loops of mildly prominent small bowel within the lower central abdomen. Osseous structures demonstrate degenerative changes. Impression: Diffuse dilation of the entire large bowel. Correlate with recent CT Abdomen/pelvis findings. Electronically signed on Apr 27, 2017 6:56:15 PM CDT by: Alf HWANG
[2017-04-27] MEDS ORDERED: cefTRIAXone SODIUM 1 GM in 0.9 % SODIUM CHLORIDE 50 ML IV ONE (20:05)
[2017-04-27] MEDS ORDERED: cefTRIAXone SODIUM 1 GM VIAL ONE (20:22)
[2017-04-27] MEDS ORDERED: 0.9 % SODIUM CHLORIDE 50 ML IV ONE (20:23)
[2017-04-27] MEDS ORDERED: CIPROFLOXACIN/D5W 400 MG in PREMIX BAG 1 BAG IV SCH (21:00)
[2017-04-27 21:37] VITALS: BP 111/46
--- NOTE | 2017-04-27 22:02 | Diagnostic Imaging Report ---
BIRDIE KILLIAN [facility] [address] [facility] [address] [address] Report Submission Date: Apr 27, 2017 9:03:44 PM CDT Patient Study Name: STEPHIE YBARRA Date: Apr 27, 2017 8:13:30 PM CDT Modality Type: CR Gender: F Description: ABDOMEN : 30 Institution: [facility] Physician: BIRDIE KILLIAN Abdomen obstructive series with AP chest. History: NG-tube placement. Findings: NG tube is in place and terminates in the distal 3rd of the esophagus. There is colonic dilation with contrast present throughout the colon extending to the rectum. The lungs are free of acute infiltrate. There is elevation right hemidiaphragm. Impression: 1. Ng tube ends in the distal third of the esophagus Electronically signed on Apr 27, 2017 9:03:44 PM CDT by: Benito HWANG
[2017-04-28] MEDS ORDERED: CIPROFLOXACIN/D5W 400 MG in PREMIX BAG 1 BAG IV SCH (10:00)
[2017-04-30] MEDS ORDERED: PEG PO ONE (12:00)
== END 2017-04-27 21:25 | disposition home or self-care (01) ==
LOC: ED 14:09 → SOUTH 14:28 → UNDOADMOB 16:02 → INTOOBSV 16:02 → SOUTH 16:02 → OBSVTOIN 04-27 09:42 → INTOOBSV 04-27 09:42 → UNDODISIN 04-27 21:25
PROVIDERS: ADMIT Family Medicine; ATTEND Family Medicine
DX: K52.9 Noninfective gastroenteritis and colitis, unspecified (principal); E87.1 Hypo-osmolality and hyponatremia; R39.198 Other difficulties with micturition; I25.10 Atherosclerotic heart disease of native coronary artery without angina pectoris
CPT/HCPCS: 36415; 74000; 74022; 74177; 80048; 80053; 80076; 81002; 85025; 87086; 87186; 99283; 99284; G0378; J0696; J1170; J1885; J3490; J7030; Q9966; 99222; 99232; 99238; A9698; G0379; S1016